=== PATIENT | female | born 1945 | race Caucasian/White ===

== ENCOUNTER 2017-10-27 19:09 | Inpatient (IN) | payer MEDICARE, MEDICAID ==
[~2017-10-27] VITALS: Ht 172.7 cm; Wt 132.6 kg
[~2017-10-27 19:09] MED LIST: CANA100T OR; CARV6.25 PO; CITA-77 PO; CYAN100L PO; DIG0125T PO; DOCU-94 PO; DON5T PO; ERGO1CAP6 PO; FAM20T PO; FOLI1TAB6 PO; FURO40TA PO; INSLANTI SC; LOSA25TA8 PO; MELA3TAB27 PO; OXYB15TA12 PO; SIMV10TA73 PO; TIOTCAP IN; WARF7.5T PO
[2017-10-27 20:18] LABS: Basophils # (auto) 0 uL; Basophils % (auto) 0.4 % (0.0-2.0); Eosinophils # (auto) 0.1 uL; Eosinophils % (auto) 0.9 % (0.0-7.0); Hemoglobin 13.2 g/dL (12.2-16.2); Platelet Count (auto) 162 10^3/uL (140-450); White Blood Cell 8.7 10^3/uL (4.4-10.8)
[2017-10-27 20:20] LABS: Hematocrit 43.1 % (36.0-46.0); Lymphocytes # (auto) 1.4 uL; Lymphocytes % (auto) 15.7 % (10.0-50.0); Mean Corpuscular Hgb Conc. 30.7 g/dL (32.0-36.0); Mean Corpuscular Volume 84.9 fL (80.0-100.0); Neutrophils # (auto) 6.3 uL; Nucleated Red Blood Cells % 0.1 %; Red Blood Cells 5.07 10^6/uL (4.0-5.20)
[2017-10-27 20:28] LABS: INR 2.72 (0.9-1.15); Partial Thromboplastin Time 36.2 sec (22.64-33.71); Prothrombin Time 29.9 sec (9.37-12.3)
[2017-10-27 20:29] LABS: Alanine Aminotransferase 30 U/L (13-56); Albumin 2.9 g/dL (3.4-5.0); Alkaline Phosphatase 149 U/L (45-117); Anion Gap 7 (5-15); Aspartate Aminotransferase 23 U/L (15-37); BUN/Creatinine Ratio 22.6; Bilirubin, Total 1.1 mg/dL (0.2-1.0); Blood Urea Nitrogen 12 mg/dL (7-18); Carbon Dioxide 40 mmol/L (21-32); Chloride 93 mmol/L (98-107); GFR African American 145 mL/min; GFR Non-African American 120 mL/min; Glucose 179 mg/dL (74-106); Magnesium 2.3 mg/dL (1.6-2.6); Potassium 4.1 mmol/L (3.5-5.1); Sodium 140 mmol/L (136-145); Total Protein 7.2 g/dL (6.4-8.2)
[2017-10-27] MEDS ORDERED: ALBUTEROL SULF 2.5 MG/0.5ML(0.5%) NEB SOLN NEB ONE (23:00)
[2017-10-27] MEDS ORDERED: methylPREDNISolone SOD SUCC 125 MG/2 ML VL IV ONE (23:00)
[2017-10-27] MEDS ORDERED: IPRATROPIUM BROM 0.5 MG/2.5ML INH SOL NEB ONE (23:00)
[2017-10-27 23:06] LABS: Urine Bacteria NONE SEEN /hpf (None Seen); Urine Blood TRACE /uL (Negative); Urine Mucus FEW (None Seen); Urine Specific Gravity 1.027 (1.001-1.035); Urine WBC 4 /hpf (0 - 5)
[2017-10-27] MEDS ORDERED: DIGOXIN (250MCG/ML) 2 ML AMPULE IV ONE ×2 (23:15→23:30)
[2017-10-27] MEDS ORDERED: PROMETHAZINE HCL 6.25 MG/5 ML ORAL SYRUP PO ONE (23:30)
[2017-10-27] MEDS ORDERED: LEVOFLOXACIN 500MG 100 ML IV ONE (23:30)
[2017-10-28] MEDS ORDERED: ONDANSETRON HCL 4 MG/2 ML VIAL IV ONE
[2017-10-28] MEDS ORDERED: MORPHINE SULFATE 4 MG/ML SYR/VIAL IV ONE
[2017-10-28] MEDS ORDERED: DILTIAZEM HCL 50 MG/10 ML VIAL IV ONE (06:35)
[2017-10-28] MEDS ORDERED: DILTIAZEM HCL 25 MG/5 ML VIAL IV ONE ×2 (06:44→06:45)
[2017-10-28] MEDS ORDERED: DEXTROSE (50%) 50ML SYRG IV PRN (07:00)
[2017-10-28] MEDS: ACCU-CHEK COMFORT CURVE STRIP VI SCH ×4 (08:04→21:37)
[2017-10-28] MEDS: InsuLIN REG 1unit/0.01ml Soln (100units/ml) SC SCH ×4 (08:09→21:37)
[2017-10-28 08:51] LABS: BUN/Creatinine Ratio 28.3; Calcium 9.5 mg/dL (8.5-10.1); Potassium 4.9 mmol/L (3.5-5.1)
[2017-10-28 09:55] LABS: Albumin 2.8 g/dL (3.4-5.0); Bilirubin, Direct 0.4 mg/dL (0-0.2); Bilirubin, Total 0.9 mg/dL (0.2-1.0); Total Protein 7.4 g/dL (6.4-8.2)
[2017-10-28 09:57] LABS: INR 2.81 (0.9-1.15); Partial Thromboplastin Time 38.5 sec (22.64-33.71); Prothrombin Time 30.9 sec (9.37-12.3)
[2017-10-28] MEDS ORDERED: FUROSEMIDE 20 MG TAB PO SCH (10:00)
[2017-10-28 10:22] VITALS: BP 100/66
[2017-10-28] MEDS: DOCUSATE SOD 100 MG CAP PO SCH ×2 (10:45→21:36)
[2017-10-28] MEDS: AZITHROMYCIN 500MG/ 250ML 250 ML IV SCH (10:45)
[2017-10-28] MEDS: CARVEDILOL 3.125 MG TAB PO SCH ×2 (10:45→21:35)
[2017-10-28] MEDS: DIGOXIN 0.125 MG TAB PO SCH (10:46)
[2017-10-28 11:30] VITALS: BP 140/69
[2017-10-28 17:40] VITALS: BP 110/64
[2017-10-28] MEDS: DONEPEZIL HYDROCHLORIDE 5 MG TAB PO SCH (21:36)
[2017-10-28 21:41] VITALS: BP 107/63
[2017-10-29 04:41] VITALS: BP 103/54
[2017-10-29 06:14] LABS: Basophils # (auto) 0 uL; Basophils % (auto) 0.1 % (0.0-2.0); Eosinophils # (auto) 0 uL; Lymphocytes # (auto) 0.9 uL; Lymphocytes % (auto) 12.2 % (10.0-50.0); Monocytes # (auto) 0.7 uL; Red Cell Distribution Width 15.7 % (11.8-14.3)
[2017-10-29 06:17] LABS: Eosinophils % (auto) 0.1 % (0.0-7.0); Hematocrit 42.7 % (36.0-46.0); Hemoglobin 13.2 g/dL (12.2-16.2); Mean Corpuscular Hemoglobin 26.4 pg (28.0-32.0); Mean Corpuscular Hgb Conc. 30.8 g/dL (32.0-36.0); Mean Corpuscular Volume 85.8 fL (80.0-100.0); Neutrophils % (auto) 78.6 % (37.0-80.0); Nucleated Red Blood Cells % 0.1 %; Platelet Count (auto) 183 10^3/uL (140-450); Red Blood Cells 4.98 10^6/uL (4.0-5.20); White Blood Cell 7.6 10^3/uL (4.4-10.8)
[2017-10-29 06:27] LABS: INR 3.98 (0.9-1.15); Partial Thromboplastin Time 38.6 sec (22.64-33.71)
[2017-10-29 06:36] LABS: Albumin 2.9 g/dL (3.4-5.0); Calcium 9.9 mg/dL (8.5-10.1); Magnesium 2.3 mg/dL (1.6-2.6); Potassium 4.2 mmol/L (3.5-5.1)
[2017-10-29 06:43] LABS: BUN/Creatinine Ratio 30.4; Bilirubin, Total 0.8 mg/dL (0.2-1.0)
[2017-10-29] MEDS: ACCU-CHEK COMFORT CURVE STRIP VI SCH ×4 (06:48→22:20)
[2017-10-29] MEDS: InsuLIN REG 1unit/0.01ml Soln (100units/ml) SC SCH ×4 (06:48→22:20)
[2017-10-29 08:44] VITALS: BP 124/52
[2017-10-29] MEDS: CARVEDILOL 3.125 MG TAB PO SCH ×2 (09:10→22:00)
[2017-10-29] MEDS: DIGOXIN 0.125 MG TAB PO SCH (09:11)
[2017-10-29] MEDS: DOCUSATE SOD 100 MG CAP PO SCH ×2 (09:11→22:17)
[2017-10-29] MEDS: FUROSEMIDE 20 MG TAB PO SCH (09:13)
[2017-10-29] MEDS: AZITHROMYCIN 500MG/ 250ML 250 ML IV SCH (09:20)
[2017-10-29] MEDS: ALBUTEROL SULF 2.5 MG/0.5ML(0.5%) NEB SOLN NEB PRN ×2 (11:45→22:50)
[2017-10-29 13:05] VITALS: BP 122/56
[2017-10-29 17:09] VITALS: BP 124/60
[2017-10-29] MEDS: DONEPEZIL HYDROCHLORIDE 5 MG TAB PO SCH (22:17)
[2017-10-29 22:30] VITALS: BP 131/59
[2017-10-30] MEDS: ACETAMINOPHEN 325 MG TAB PO PRN (02:20)
[2017-10-30 05:29] VITALS: BP 120/66
[2017-10-30] MEDS: ACCU-CHEK COMFORT CURVE STRIP VI SCH ×4 (06:32→22:08)
[2017-10-30] MEDS: InsuLIN REG 1unit/0.01ml Soln (100units/ml) SC SCH ×4 (06:32→22:18)
[2017-10-30 07:02] LABS: INR 2.4 (0.9-1.15); Partial Thromboplastin Time 35.2 sec (22.64-33.71); Prothrombin Time 26.4 sec (9.37-12.3)
[2017-10-30 07:12] LABS: Albumin 2.7 g/dL (3.4-5.0); BUN/Creatinine Ratio 45.2; Calcium 8.8 mg/dL (8.5-10.1); Magnesium 2.1 mg/dL (1.6-2.6)
[2017-10-30 07:15] LABS: Bilirubin, Total 0.7 mg/dL (0.2-1.0); Total Protein 6.3 g/dL (6.4-8.2)
[2017-10-30 07:21] LABS: Basophils # (auto) 0 uL; Basophils % (auto) 0.4 % (0.0-2.0); Hemoglobin 12.6 g/dL (12.2-16.2); Lymphocytes # (auto) 1.5 uL; Monocytes # (auto) 0.9 uL; Platelet Count (auto) 159 10^3/uL (140-450); White Blood Cell 6.7 10^3/uL (4.4-10.8)
[2017-10-30 07:25] LABS: Eosinophils # (auto) 0.1 uL; Eosinophils % (auto) 0.9 % (0.0-7.0); Hematocrit 40.9 % (36.0-46.0); Lymphocytes % (auto) 22.7 % (10.0-50.0); Mean Corpuscular Hemoglobin 26.3 pg (28.0-32.0); Mean Corpuscular Hgb Conc. 30.8 g/dL (32.0-36.0); Mean Corpuscular Volume 85.6 fL (80.0-100.0); Monocytes % (auto) 12.7 % (0.0-12.0); Neutrophils # (auto) 4.2 uL; Neutrophils % (auto) 63.3 % (37.0-80.0); Nucleated Red Blood Cells % 0.2 %; Red Blood Cells 4.78 10^6/uL (4.0-5.20); Red Cell Distribution Width 15.9 % (11.8-14.3)
[2017-10-30 09:00] VITALS: BP 160/62
[2017-10-30] MEDS: DOCUSATE SOD 100 MG CAP PO SCH ×2 (10:09→22:08)
[2017-10-30] MEDS: FUROSEMIDE 20 MG TAB PO SCH (10:10)
[2017-10-30] MEDS: CARVEDILOL 3.125 MG TAB PO SCH ×2 (10:10→22:09)
[2017-10-30] MEDS: DIGOXIN 0.125 MG TAB PO SCH (10:11)
[2017-10-30] MEDS: AZITHROMYCIN 500MG/ 250ML 250 ML IV SCH (10:11)
[2017-10-30 13:00] VITALS: BP 120/56
[2017-10-30 17:00] VITALS: BP 104/56
[2017-10-30] MEDS ORDERED: WARFARIN SODIUM 1 MG TAB PO ONE (17:00)
[2017-10-30 20:00] VITALS: BP 138/61
[2017-10-30] MEDS: DONEPEZIL HYDROCHLORIDE 5 MG TAB PO SCH (22:08)
[2017-10-30 22:35] VITALS: BP 138/61
[2017-10-31] VITALS (8 sets, daily range): BP systolic 105–149; BP diastolic 53–81
[2017-10-31] MEDS: ACCU-CHEK COMFORT CURVE STRIP VI SCH ×4 (06:40→21:58)
[2017-10-31] MEDS: InsuLIN REG 1unit/0.01ml Soln (100units/ml) SC SCH ×4 (06:47→22:44)
[2017-10-31 07:03] LABS: Basophils # (auto) 0 uL; Basophils % (auto) 0.5 % (0.0-2.0); Eosinophils # (auto) 0.1 uL; Hemoglobin 12.4 g/dL (12.2-16.2); Monocytes # (auto) 0.7 uL; Neutrophils # (auto) 3.4 uL; Nucleated Red Blood Cells % 0.1 %; White Blood Cell 5.9 10^3/uL (4.4-10.8)
[2017-10-31 07:06] LABS: Eosinophils % (auto) 1.4 % (0.0-7.0); Hematocrit 39.9 % (36.0-46.0); Lymphocytes # (auto) 1.6 uL; Mean Corpuscular Hemoglobin 26.3 pg (28.0-32.0); Mean Corpuscular Volume 84.6 fL (80.0-100.0); Monocytes % (auto) 12.7 % (0.0-12.0); Neutrophils % (auto) 57.4 % (37.0-80.0); Platelet Count (auto) 146 10^3/uL (140-450); Red Blood Cells 4.71 10^6/uL (4.0-5.20); Red Cell Distribution Width 16.1 % (11.8-14.3)
[2017-10-31 07:20] LABS: BUN/Creatinine Ratio 38.5; Calcium 8.5 mg/dL (8.5-10.1); Magnesium 1.9 mg/dL (1.6-2.6); Potassium 3.6 mmol/L (3.5-5.1)
[2017-10-31 07:26] LABS: INR 1.6 (0.9-1.15); Partial Thromboplastin Time 30.8 sec (22.64-33.71); Prothrombin Time 17.5 sec (9.37-12.3)
[2017-10-31] MEDS: DOCUSATE SOD 100 MG CAP PO SCH ×2 (09:13→22:00)
[2017-10-31] MEDS: DIGOXIN 0.125 MG TAB PO SCH (09:13)
[2017-10-31] MEDS: CARVEDILOL 3.125 MG TAB PO SCH ×2 (09:14→22:00)
[2017-10-31] MEDS: FUROSEMIDE 20 MG TAB PO SCH (09:14)
[2017-10-31] MEDS: AZITHROMYCIN 500MG/ 250ML 250 ML IV SCH (09:15)
[2017-10-31] MEDS: ARMODAFINIL 150 MG TAB PO SCH (09:21)
[2017-10-31] MEDS ORDERED: WARFARIN SODIUM 2.5 MG TAB PO ONE (17:00)
[2017-10-31] MEDS: DONEPEZIL HYDROCHLORIDE 5 MG TAB PO SCH (21:58)
[2017-11-01 04:34] VITALS: BP 134/83
[2017-11-01 06:16] LABS: Basophils # (auto) 0 uL; Eosinophils # (auto) 0.1 uL; Hematocrit 43.8 % (36.0-46.0); Hemoglobin 13.6 g/dL (12.2-16.2); Lymphocytes # (auto) 1.5 uL; Mean Corpuscular Hemoglobin 26.3 pg (28.0-32.0); Red Blood Cells 5.17 10^6/uL (4.0-5.20); White Blood Cell 6.2 10^3/uL (4.4-10.8)
[2017-11-01 06:19] LABS: Basophils % (auto) 0.3 % (0.0-2.0); Lymphocytes % (auto) 24.6 % (10.0-50.0); Mean Corpuscular Hgb Conc. 31.1 g/dL (32.0-36.0); Mean Corpuscular Volume 84.7 fL (80.0-100.0); Monocytes # (auto) 0.7 uL; Monocytes % (auto) 11.6 % (0.0-12.0); Neutrophils # (auto) 3.8 uL; Neutrophils % (auto) 61.5 % (37.0-80.0); Nucleated Red Blood Cells % 0.3 %; Platelet Count (auto) 157 10^3/uL (140-450); Red Cell Distribution Width 16.3 % (11.8-14.3)
[2017-11-01 06:25] LABS: INR 1.4 (0.9-1.15); Partial Thromboplastin Time 29.2 sec (22.64-33.71); Prothrombin Time 15.3 sec (9.37-12.3)
[2017-11-01 06:34] LABS: BUN/Creatinine Ratio 23.1; Calcium 8.8 mg/dL (8.5-10.1); Magnesium 2.1 mg/dL (1.6-2.6); Potassium 3.5 mmol/L (3.5-5.1)
[2017-11-01] MEDS: ACCU-CHEK COMFORT CURVE STRIP VI SCH ×4 (06:36→22:17)
[2017-11-01] MEDS: InsuLIN REG 1unit/0.01ml Soln (100units/ml) SC SCH ×4 (06:48→22:39)
[2017-11-01 07:30] VITALS: BP 168/107
[2017-11-01] MEDS: ARMODAFINIL 150 MG TAB PO SCH (08:37)
[2017-11-01] MEDS: AZITHROMYCIN 500MG/ 250ML 250 ML IV SCH (09:50)
[2017-11-01] MEDS: DOCUSATE SOD 100 MG CAP PO SCH ×2 (09:50→22:17)
[2017-11-01] MEDS: CARVEDILOL 3.125 MG TAB PO SCH ×2 (09:51→22:19)
[2017-11-01] MEDS: DIGOXIN 0.125 MG TAB PO SCH (09:52)
[2017-11-01] MEDS: FUROSEMIDE 20 MG TAB PO SCH (09:53)
[2017-11-01 11:49] VITALS: BP 114/52
[2017-11-01] MEDS: ACETYLCYSTEINE 20%(200MG/ML) SOL 4ML NEB SCH ×2 (14:23→22:59)
[2017-11-01] MEDS: ALBUTEROL SULF 2.5 MG/0.5ML(0.5%) NEB SOLN NEB PRN ×2 (14:23→22:59)
[2017-11-01 17:07] VITALS: BP 123/64
[2017-11-01] MEDS ORDERED: WARFARIN SODIUM 5 MG TAB PO ONE (17:30)
[2017-11-01 21:56] VITALS: BP 117/61
[2017-11-01] MEDS: DONEPEZIL HYDROCHLORIDE 5 MG TAB PO SCH (22:18)
[2017-11-02] VITALS (7 sets, daily range): BP systolic 120–139; BP diastolic 65–86
[2017-11-02 05:45] LABS: Eosinophils # (auto) 0.1 uL; Lymphocytes # (auto) 1.9 uL; Mean Corpuscular Hemoglobin 26.5 pg (28.0-32.0); Mean Corpuscular Hgb Conc. 31.7 g/dL (32.0-36.0); Monocytes # (auto) 0.8 uL
[2017-11-02 05:49] LABS: Basophils # (auto) 0.1 uL; Basophils % (auto) 0.8 % (0.0-2.0); Eosinophils % (auto) 1.7 % (0.0-7.0); Hemoglobin 13.7 g/dL (12.2-16.2); Lymphocytes % (auto) 26.1 % (10.0-50.0); Mean Corpuscular Volume 83.4 fL (80.0-100.0); Monocytes % (auto) 11.1 % (0.0-12.0); Neutrophils # (auto) 4.5 uL; Neutrophils % (auto) 60.3 % (37.0-80.0); Nucleated Red Blood Cells % 0.2 %; Platelet Count (auto) 157 10^3/uL (140-450); Red Blood Cells 5.16 10^6/uL (4.0-5.20); Red Cell Distribution Width 16.4 % (11.8-14.3); White Blood Cell 7.5 10^3/uL (4.4-10.8)
[2017-11-02 05:58] LABS: INR 1.31 (0.9-1.15); Partial Thromboplastin Time 26.8 sec (22.64-33.71); Prothrombin Time 14.3 sec (9.37-12.3)
[2017-11-02 06:04] LABS: BUN/Creatinine Ratio 28.6; Calcium 8.7 mg/dL (8.5-10.1); Potassium 3.4 mmol/L (3.5-5.1)
[2017-11-02] MEDS: ALBUTEROL SULF 2.5 MG/0.5ML(0.5%) NEB SOLN NEB PRN ×3 (06:18→22:38)
[2017-11-02] MEDS: ACETYLCYSTEINE 20%(200MG/ML) SOL 4ML NEB SCH ×3 (06:18→22:38)
[2017-11-02] MEDS: InsuLIN REG 1unit/0.01ml Soln (100units/ml) SC SCH ×4 (06:41→21:43)
[2017-11-02] MEDS: ACCU-CHEK COMFORT CURVE STRIP VI SCH ×4 (07:06→21:43)
[2017-11-02] MEDS: ARMODAFINIL 150 MG TAB PO SCH (08:09)
[2017-11-02] MEDS: DOCUSATE SOD 100 MG CAP PO SCH ×2 (09:41→21:42)
[2017-11-02] MEDS: AZITHROMYCIN 500MG/ 250ML 250 ML IV SCH (09:41)
[2017-11-02] MEDS: DIGOXIN 0.125 MG TAB PO SCH (09:42)
[2017-11-02] MEDS: FUROSEMIDE 20 MG TAB PO SCH (09:42)
[2017-11-02] MEDS: CARVEDILOL 3.125 MG TAB PO SCH ×2 (09:43→21:42)
[2017-11-02] MEDS ORDERED: POTASSIUM CHL 20 Meq TABLET PO ONE (10:30)
[2017-11-02] MEDS: ENOXAPARIN SOD 40 MG/0.4 ML SYRINGE SC SCH (10:50)
[2017-11-02] MEDS ORDERED: WARFARIN SODIUM 10 MG TAB PO ONE (17:00)
[2017-11-02] MEDS: DONEPEZIL HYDROCHLORIDE 5 MG TAB PO SCH (21:42)
[2017-11-03 04:49] VITALS: BP 128/76
[2017-11-03] MEDS: InsuLIN REG 1unit/0.01ml Soln (100units/ml) SC SCH ×4 (05:59→23:05)
[2017-11-03] MEDS: ACCU-CHEK COMFORT CURVE STRIP VI SCH ×4 (05:59→22:55)
[2017-11-03] MEDS: ALBUTEROL SULF 2.5 MG/0.5ML(0.5%) NEB SOLN NEB PRN ×2 (06:15→23:00)
[2017-11-03] MEDS: ACETYLCYSTEINE 20%(200MG/ML) SOL 4ML NEB SCH ×3 (06:15→22:58)
[2017-11-03 06:27] LABS: Basophils # (auto) 0.1 uL; Eosinophils # (auto) 0.1 uL; Hemoglobin 14.5 g/dL (12.2-16.2); Monocytes # (auto) 0.9 uL; Nucleated Red Blood Cells % 0.4 %
[2017-11-03 06:29] LABS: Basophils % (auto) 0.9 % (0.0-2.0); Eosinophils % (auto) 1.8 % (0.0-7.0); Hematocrit 46.1 % (36.0-46.0); Mean Corpuscular Hemoglobin 26.4 pg (28.0-32.0); Mean Corpuscular Hgb Conc. 31.6 g/dL (32.0-36.0); Mean Corpuscular Volume 83.8 fL (80.0-100.0); Monocytes % (auto) 12.6 % (0.0-12.0); Neutrophils % (auto) 56.7 % (37.0-80.0); Platelet Count (auto) 173 10^3/uL (140-450); Red Cell Distribution Width 16.3 % (11.8-14.3); White Blood Cell 7.1 10^3/uL (4.4-10.8)
[2017-11-03 06:36] LABS: INR 1.53 (0.9-1.15); Partial Thromboplastin Time 24.8 sec (22.64-33.71); Prothrombin Time 16.7 sec (9.37-12.3)
[2017-11-03 06:42] LABS: Calcium 8.9 mg/dL (8.5-10.1); Potassium 3.8 mmol/L (3.5-5.1)
[2017-11-03] MEDS: ARMODAFINIL 150 MG TAB PO SCH (08:00)
[2017-11-03 08:25] VITALS: BP 124/59
[2017-11-03] MEDS: DOCUSATE SOD 100 MG CAP PO SCH ×2 (09:48→22:54)
[2017-11-03] MEDS: AZITHROMYCIN 250 MG TAB PO SCH (09:49)
[2017-11-03] MEDS: FUROSEMIDE 20 MG TAB PO SCH (09:49)
[2017-11-03] MEDS: DIGOXIN 0.125 MG TAB PO SCH (09:49)
[2017-11-03] MEDS: ENOXAPARIN SOD 40 MG/0.4 ML SYRINGE SC SCH (09:50)
[2017-11-03] MEDS: CARVEDILOL 3.125 MG TAB PO SCH ×2 (09:50→22:55)
[2017-11-03] MEDS: ACETAMINOPHEN 325 MG TAB PO PRN ×2 (09:53→14:46)
[2017-11-03] MEDS ORDERED: ENOXAPARIN SOD 40 MG/0.4 ML SYRINGE SC SCH (10:00)
[2017-11-03 11:26] VITALS: BP 124/59
[2017-11-03 12:21] VITALS: BP 130/80
[2017-11-03 16:56] VITALS: BP 151/57
[2017-11-03] MEDS ORDERED: WARFARIN SODIUM 5 MG TAB PO ONE (17:00)
[2017-11-03] MEDS ORDERED: Boost Glucose Control 8 Ounces PO SCH (18:00)
[2017-11-03 22:00] VITALS: BP 133/71
[2017-11-03] MEDS: DONEPEZIL HYDROCHLORIDE 5 MG TAB PO SCH (22:54)
[2017-11-04 05:31] VITALS: BP 100/50
[2017-11-04 06:25] LABS: Basophils # (auto) 0 uL; Eosinophils # (auto) 0.1 uL; Monocytes # (auto) 0.9 uL
[2017-11-04 06:28] LABS: Basophils % (auto) 0.7 % (0.0-2.0); Eosinophils % (auto) 1.4 % (0.0-7.0); Hematocrit 45.6 % (36.0-46.0); Hemoglobin 14.3 g/dL (12.2-16.2); Lymphocytes # (auto) 1.8 uL; Mean Corpuscular Hemoglobin 26.3 pg (28.0-32.0); Mean Corpuscular Hgb Conc. 31.4 g/dL (32.0-36.0); Mean Corpuscular Volume 83.7 fL (80.0-100.0); Monocytes % (auto) 14.7 % (0.0-12.0); Neutrophils # (auto) 3.4 uL; Neutrophils % (auto) 54.2 % (37.0-80.0); Nucleated Red Blood Cells % 1.2 %; Platelet Count (auto) 162 10^3/uL (140-450); Red Blood Cells 5.44 10^6/uL (4.0-5.20); Red Cell Distribution Width 16.8 % (11.8-14.3); White Blood Cell 6.3 10^3/uL (4.4-10.8)
[2017-11-04 06:34] LABS: INR 2.01 (0.9-1.15); Partial Thromboplastin Time 29.9 sec (22.64-33.71); Prothrombin Time 22.1 sec (9.37-12.3)
[2017-11-04] MEDS: InsuLIN REG 1unit/0.01ml Soln (100units/ml) SC SCH (06:35)
[2017-11-04 06:42] LABS: Calcium 8.9 mg/dL (8.5-10.1); Potassium 3.2 mmol/L (3.5-5.1)
[2017-11-04] MEDS: ALBUTEROL SULF 2.5 MG/0.5ML(0.5%) NEB SOLN NEB PRN (06:47)
[2017-11-04] MEDS: ACETYLCYSTEINE 20%(200MG/ML) SOL 4ML NEB SCH (06:47)
[2017-11-04 06:48] LABS: BUN/Creatinine Ratio 29.6
[2017-11-04] MEDS: ACCU-CHEK COMFORT CURVE STRIP VI SCH (06:50)
[2017-11-04] MEDS ORDERED: POTASSIUM CHL 20 Meq TABLET PO ONE (07:30)
[2017-11-04 09:00] VITALS: BP 137/67
[2017-11-04] MEDS: AZITHROMYCIN 250 MG TAB PO SCH (09:01)
[2017-11-04] MEDS: CARVEDILOL 3.125 MG TAB PO SCH (09:02)
[2017-11-04] MEDS: ARMODAFINIL 150 MG TAB PO SCH (09:03)
[2017-11-04] MEDS: DOCUSATE SOD 100 MG CAP PO SCH (09:04)
[2017-11-04] MEDS: FUROSEMIDE 20 MG TAB PO SCH (09:04)
[2017-11-04] MEDS: DIGOXIN 0.125 MG TAB PO SCH (09:05)
[2017-11-04] MEDS: ENOXAPARIN SOD 40 MG/0.4 ML SYRINGE SC SCH (09:06)
== END 2017-11-04 10:54 | disposition home or self-care (01) | DRG 291 ==
LOC: EDBD 19:09 → ER 19:09 → TELE 19:10 → TELE-EAST 10-28 15:36
PROVIDERS: ADMIT Nurse Practitioner Family; ATTEND Internal Medicine
PROC: 5A09357 Assistance with Respiratory Ventilation, Less than 24 Consecutive Hours, Continuous Positive Airway Pressure (ICD-10-PCS; principal; 2017-11-01)
PROC: 5A09357 Assistance with Respiratory Ventilation, Less than 24 Consecutive Hours, Continuous Positive Airway Pressure (ICD-10-PCS; 2017-11-02)
PROC: 5A09357 Assistance with Respiratory Ventilation, Less than 24 Consecutive Hours, Continuous Positive Airway Pressure (ICD-10-PCS; 2017-11-03)
DX: I13.0 Hypertensive heart and chronic kidney disease with heart failure and stage 1 through stage 4 chronic kidney disease, or unspecified chronic kidney disease (principal); I50.21 Acute systolic (congestive) heart failure; J96.22 Acute and chronic respiratory failure with hypercapnia; J18.9 Pneumonia, unspecified organism; E44.0 Moderate protein-calorie malnutrition; E87.3 Alkalosis; D68.59 Other primary thrombophilia; D68.9 Coagulation defect, unspecified; E11.22 Type 2 diabetes mellitus with diabetic chronic kidney disease; E46 Unspecified protein-calorie malnutrition; E66.2 Morbid (severe) obesity with alveolar hypoventilation; J44.0 Chronic obstructive pulmonary disease with (acute) lower respiratory infection; J44.1 Chronic obstructive pulmonary disease with (acute) exacerbation; Z68.41 Body mass index [BMI] 40.0-44.9, adult; E11.65 Type 2 diabetes mellitus with hyperglycemia; N18.9 Chronic kidney disease, unspecified; D64.9 Anemia, unspecified; E78.5 Hyperlipidemia, unspecified; F03.90 Unspecified dementia, unspecified severity, without behavioral disturbance, psychotic disturbance, mood disturbance, and anxiety; F41.9 Anxiety disorder, unspecified; E78.00 Pure hypercholesterolemia, unspecified; I48.91 Unspecified atrial fibrillation; I50.9 Heart failure, unspecified; M10.9 Gout, unspecified; Z79.01 Long term (current) use of anticoagulants; Z79.4 Long term (current) use of insulin; Z82.49 Family history of ischemic heart disease and other diseases of the circulatory system; Z83.3 Family history of diabetes mellitus; Z86.73 Personal history of transient ischemic attack (TIA), and cerebral infarction without residual deficits; Z90.710 Acquired absence of both cervix and uterus; Z79.899 Other long term (current) drug therapy; Z88.0 Allergy status to penicillin
CPT/HCPCS: 36415; 36600; 51702; 71045; 80048; 80053; 80076; 80162; 81001; 82805; 82962; 83036; 83735; 83880; 84484; 85025; 85379; 85610; 85730; 87081; 93005; 93306; 94640; 94660; 96365; 96375; 97163; J1815; J1956; J2405

== ENCOUNTER 2018-07-14 12:31 | Inpatient (IN) | payer MEDICARE, MEDICAID ==
[~2018-07-14] VITALS: Ht 170.2 cm; Wt 121.9 kg
[2018-07-14] MEDS ORDERED: SODIUM CHLORIDE 0.9% 1,000 ML IV ONE (15:32)
[2018-07-14 17:13] LABS: Basophils # (auto) 0 uL; Basophils % (auto) 0.5 % (0.0-2.0); Eosinophils # (auto) 0 uL; Eosinophils % (auto) 0.5 % (0.0-7.0); Hematocrit 43.2 % (36.0-46.0); Hemoglobin 13.9 g/dL (12.2-16.2); Lymphocytes # (auto) 1.7 uL; Lymphocytes % (auto) 42.9 % (10.0-50.0); Mean Corpuscular Hemoglobin 28.2 pg (28.0-32.0); Mean Corpuscular Hgb Conc. 32.1 g/dL (32.0-36.0); Mean Corpuscular Volume 87.9 fL (80.0-100.0); Monocytes # (auto) 0.3 uL; Monocytes % (auto) 8.3 % (0.0-12.0); Neutrophils # (auto) 1.9 uL; Neutrophils % (auto) 47.8 % (37.0-80.0); Nucleated Red Blood Cells % 0.3 %; Platelet Count (auto) 103 10^3/uL (140-450); Red Blood Cells 4.92 10^6/uL (4.0-5.20); Red Cell Distribution Width 13.8 % (11.8-14.3)
[2018-07-14] MEDS ORDERED: FUROSEMIDE 40 MG/4 ML VIAL IV ONE (17:15)
[2018-07-14] MEDS ORDERED: cefTRIAXone 1GM/50ML D5W 50 ML IV ONE (17:15)
[2018-07-14 17:24] LABS: INR 1.24 (0.9-1.15); Partial Thromboplastin Time 32.4 sec (23.78-33.04); Prothrombin Time 13.1 sec (9.27-12.13)
[2018-07-14 17:25] LABS: Albumin 2.7 g/dL (3.4-5.0); BUN/Creatinine Ratio 26.2; Calcium 8.3 mg/dL (8.5-10.1); Magnesium 2.3 mg/dL (1.6-2.6); Potassium 3.8 mmol/L (3.5-5.1)
[2018-07-14 17:30] LABS: Bilirubin, Total 0.4 mg/dL (0.2-1.0); Total Protein 7.1 g/dL (6.4-8.2)
[2018-07-14 18:28] LABS: Urine Bacteria NONE SEEN /hpf (None Seen); Urine Blood Negative /uL (Negative); Urine Hyaline Cast FEW /lpf (0 - 2); Urine Specific Gravity 1.019 (1.001-1.035); Urine WBC 1 /hpf (0 - 5)
[2018-07-14 18:45] LABS: Amphetamine Screen, Urine NEGATIVE (NEGATIVE); Barbiturate Scree,Urine NEGATIVE (NEGATIVE); Benzodiazephine Screen, Urine NEGATIVE (NEGATIVE); Cannabinoid Screen, Urine NEGATIVE (NEGATIVE); Cocaine Screen, Urine NEGATIVE (NEGATIVE); Opiate Scree,Urine NEGATIVE (NEGATIVE); Phencyclidine Screen, Urine NEGATIVE (NEGATIVE)
[2018-07-14] MEDS ORDERED: FAMOTIDINE (10MG/ML) 2ML VL IV ONE (19:00)
[2018-07-14 22:00] VITALS: BP 101/49
[2018-07-14] MEDS: ACCU-CHEK COMFORT CURVE STRIP VI SCH (23:05)
[2018-07-14] MEDS: InsuLIN REG 1unit/0.01ml Soln (100units/ml) SC SCH (23:06)
[2018-07-15 05:00] VITALS: BP 133/65
[2018-07-15] MEDS ORDERED: PANT1INJ3 PO (05:47)
[2018-07-15] MEDS ORDERED: FLUO-125 PO (05:47)
[2018-07-15] MEDS ORDERED: WARF4TAB31 PO (05:47)
[2018-07-15] MEDS ORDERED: PROBTAB12 PO (05:47)
[2018-07-15] MEDS: ACCU-CHEK COMFORT CURVE STRIP VI SCH ×4 (06:12→21:48)
[2018-07-15] MEDS: InsuLIN REG 1unit/0.01ml Soln (100units/ml) SC SCH ×4 (06:12→21:48)
[2018-07-15 07:28] VITALS: BP 127/60
[2018-07-15] MEDS: FAMOTIDINE (10MG/ML) 2ML VL IV SCH ×2 (10:48→21:47)
[2018-07-15 11:27] VITALS: BP 123/61
[2018-07-15 16:43] VITALS: BP 163/84
[2018-07-15 22:00] VITALS: BP 130/92
[2018-07-16 04:56] VITALS: BP 148/64
[2018-07-16] MEDS: InsuLIN REG 1unit/0.01ml Soln (100units/ml) SC SCH ×4 (06:03→21:21)
[2018-07-16] MEDS: ACCU-CHEK COMFORT CURVE STRIP VI SCH ×4 (06:03→21:21)
[2018-07-16 07:27] VITALS: BP 153/71
[2018-07-16] MEDS ORDERED: IPRATROPIUM BROM 0.5 MG/2.5ML INH SOL NEB PRN (09:45)
[2018-07-16] MEDS ORDERED: VANCOMYCIN PER PHARMACY 0 MG IV SCH (09:45)
[2018-07-16] MEDS ORDERED: ALBUTEROL SULF 2.5 MG/0.5ML(0.5%) NEB SOLN NEB PRN (09:45)
[2018-07-16] MEDS ORDERED: ONDANSETRON HCL 4 MG/2 ML VIAL IV PRN (09:45)
[2018-07-16] MEDS: FAMOTIDINE 20 MG TAB PO SCH ×2 (10:23→21:21)
[2018-07-16] MEDS: LEVOFLOXACIN 500MG 100 ML IV SCH (10:23)
[2018-07-16] MEDS: ENOXAPARIN SOD 120 MG/0.8 ML SYRINGE SC SCH (10:24)
[2018-07-16] MEDS ORDERED: IOHEXOL 350 MG/ML 100ML IJ ONE (10:53)
[2018-07-16] MEDS ORDERED: VANCOMYCIN 1GM/250ML 250 ML IV ONE (11:00)
[2018-07-16 11:40] VITALS: BP 142/77
[2018-07-16 16:45] VITALS: BP 155/62
[2018-07-16 22:00] VITALS: BP 136/86
[2018-07-16] MEDS: VANCOMYCIN 1,250 MG in D5W 5% 250 ML IV SCH (22:51)
[2018-07-17 01:58] VITALS: BP 136/86
[2018-07-17 04:59] VITALS: BP 152/72
[2018-07-17] MEDS: ACCU-CHEK COMFORT CURVE STRIP VI SCH ×4 (06:04→21:19)
[2018-07-17] MEDS: InsuLIN REG 1unit/0.01ml Soln (100units/ml) SC SCH ×4 (06:04→21:18)
[2018-07-17 06:29] LABS: BUN/Creatinine Ratio 28.6; Calcium 8.6 mg/dL (8.5-10.1); Potassium 3.7 mmol/L (3.5-5.1)
[2018-07-17 09:00] VITALS: BP 148/74
[2018-07-17] MEDS: LEVOFLOXACIN 500MG 100 ML IV SCH (10:44)
[2018-07-17] MEDS: FAMOTIDINE 20 MG TAB PO SCH ×2 (10:45→21:18)
[2018-07-17] MEDS: ENOXAPARIN SOD 120 MG/0.8 ML SYRINGE SC SCH (10:45)
[2018-07-17] MEDS: VANCOMYCIN 1,250 MG in D5W 5% 250 ML IV SCH ×2 (12:30→23:04)
[2018-07-17 13:00] VITALS: BP 149/73
[2018-07-17 17:00] VITALS: BP 148/77
[2018-07-17 22:00] VITALS: BP 148/75
[2018-07-18 05:36] VITALS: BP 157/78
[2018-07-18] MEDS: ACCU-CHEK COMFORT CURVE STRIP VI SCH ×4 (06:05→21:33)
[2018-07-18] MEDS: InsuLIN REG 1unit/0.01ml Soln (100units/ml) SC SCH ×4 (06:05→21:33)
[2018-07-18 09:00] VITALS: BP 149/73
[2018-07-18] MEDS: ENOXAPARIN SOD 120 MG/0.8 ML SYRINGE SC SCH (09:55)
[2018-07-18] MEDS: FAMOTIDINE 20 MG TAB PO SCH ×2 (09:55→21:32)
[2018-07-18] MEDS: LEVOFLOXACIN 500MG 100 ML IV SCH (09:55)
[2018-07-18] MEDS: VANCOMYCIN 1,250 MG in D5W 5% 250 ML IV SCH ×2 (11:44→23:10)
[2018-07-18 13:00] VITALS: BP 150/74
[2018-07-18 17:00] VITALS: BP 114/64
[2018-07-18] MEDS: MEROPENEM 1GM IVPB 100 ML IV SCH ×2 (17:36→21:32)
[2018-07-18] MEDS: METOPROLOL TARTRATE 25 MG TAB PO SCH (21:33)
[2018-07-18 22:00] VITALS: BP 155/86
[2018-07-19 05:15] VITALS: BP 144/73
[2018-07-19] MEDS: MEROPENEM 1GM IVPB 100 ML IV SCH ×3 (05:31→21:50)
[2018-07-19] MEDS: InsuLIN REG 1unit/0.01ml Soln (100units/ml) SC SCH ×4 (06:06→21:52)
[2018-07-19] MEDS: ACCU-CHEK COMFORT CURVE STRIP VI SCH ×4 (06:06→21:52)
[2018-07-19 06:20] LABS: Basophils # (auto) 0 uL; Basophils % (auto) 0.6 % (0.0-2.0); Eosinophils # (auto) 0.1 uL; Eosinophils % (auto) 2.1 % (0.0-7.0); Hematocrit 42.3 % (36.0-46.0); Hemoglobin 13.8 g/dL (12.2-16.2); Lymphocytes # (auto) 1.7 uL; Lymphocytes % (auto) 32.4 % (10.0-50.0); Mean Corpuscular Hemoglobin 28.4 pg (28.0-32.0); Mean Corpuscular Hgb Conc. 32.6 g/dL (32.0-36.0); Mean Corpuscular Volume 87.1 fL (80.0-100.0); Monocytes # (auto) 0.5 uL; Monocytes % (auto) 10.3 % (0.0-12.0); Neutrophils # (auto) 2.9 uL; Neutrophils % (auto) 54.6 % (37.0-80.0); Nucleated Red Blood Cells % 0.1 %; Platelet Count (auto) 149 10^3/uL (140-450); Red Blood Cells 4.85 10^6/uL (4.0-5.20); Red Cell Distribution Width 13.9 % (11.8-14.3); White Blood Cell 5.3 10^3/uL (4.4-10.8)
[2018-07-19] MEDS ORDERED: VANCOMYCIN PER PHARMACY 0 MG IV SCH (08:30)
[2018-07-19 09:00] VITALS: BP 171/76
[2018-07-19] MEDS: METOPROLOL TARTRATE 25 MG TAB PO SCH ×2 (10:21→21:51)
[2018-07-19] MEDS: FAMOTIDINE 20 MG TAB PO SCH ×2 (10:22→21:51)
[2018-07-19] MEDS: ENOXAPARIN SOD 120 MG/0.8 ML SYRINGE SC SCH (10:23)
[2018-07-19] MEDS: VANCOMYCIN 1,250 MG in D5W 5% 250 ML IV SCH ×2 (10:41→11:00)
[2018-07-19 12:50] VITALS: BP 135/62
[2018-07-19] MEDS ORDERED: DOCUSATE SOD 100 MG CAP PO ONE (16:30)
[2018-07-19 17:00] VITALS: BP 148/69
[2018-07-19] MEDS ORDERED: VANCOMYCIN 1,250 MG in D5W 5% 250 ML IV SCH (17:00)
[2018-07-19] MEDS: VANCOMYCIN 1GM/250ML 250 ML IV SCH (17:00)
[2018-07-19] MEDS: HYDROcodone-ACET 5/325MG TAB PO PRN (17:10)
[2018-07-19 21:12] VITALS: BP 148/69
[2018-07-19] MEDS: DOCUSATE SOD 100 MG CAP PO SCH (21:50)
[2018-07-19] MEDS: MILK OF MAGNESIA 30ML SUSP PO SCH (21:51)
[2018-07-19 22:00] VITALS: BP 141/67
[2018-07-20] VITALS (7 sets, daily range): BP systolic 115–154; BP diastolic 54–75
[2018-07-20] MEDS: VANCOMYCIN 1GM/250ML 250 ML IV SCH (05:41)
[2018-07-20] MEDS: MEROPENEM 1GM IVPB 100 ML IV SCH ×2 (06:23→15:25)
[2018-07-20] MEDS: InsuLIN REG 1unit/0.01ml Soln (100units/ml) SC SCH ×2 (06:24→11:30)
[2018-07-20] MEDS: MILK OF MAGNESIA 30ML SUSP PO SCH ×2 (06:24→15:25)
[2018-07-20] MEDS: ACCU-CHEK COMFORT CURVE STRIP VI SCH ×2 (06:24→11:30)
[2018-07-20] MEDS: FAMOTIDINE 20 MG TAB PO SCH (09:46)
[2018-07-20] MEDS: DOCUSATE SOD 100 MG CAP PO SCH (09:46)
[2018-07-20] MEDS: METOPROLOL TARTRATE 25 MG TAB PO SCH (09:46)
[2018-07-20] MEDS: ENOXAPARIN SOD 120 MG/0.8 ML SYRINGE SC SCH (09:47)
[2018-07-20] MEDS: HYDROcodone-ACET 5/325MG TAB PO PRN (10:59)
== END 2018-07-20 16:35 | DRG 291 ==
LOC: EDBD 12:31 → ER 12:31 → WEST WING 21:55 → TELE-WESTW 07-15 00:40
PROVIDERS: ADMIT Specialist; ATTEND Specialist
DX: I13.0 Hypertensive heart and chronic kidney disease with heart failure and stage 1 through stage 4 chronic kidney disease, or unspecified chronic kidney disease (principal); I50.33 Acute on chronic diastolic (congestive) heart failure; J18.1 Lobar pneumonia, unspecified organism; N39.0 Urinary tract infection, site not specified; Z68.41 Body mass index [BMI] 40.0-44.9, adult; B96.4 Proteus (mirabilis) (morganii) as the cause of diseases classified elsewhere; E11.22 Type 2 diabetes mellitus with diabetic chronic kidney disease; E66.01 Morbid (severe) obesity due to excess calories; E78.5 Hyperlipidemia, unspecified; G40.909 Epilepsy, unspecified, not intractable, without status epilepticus; I48.91 Unspecified atrial fibrillation; I69.30 Unspecified sequelae of cerebral infarction; J45.909 Unspecified asthma, uncomplicated; N18.9 Chronic kidney disease, unspecified; Z16.23 Resistance to quinolones and fluoroquinolones; Z93.1 Gastrostomy status; M10.9 Gout, unspecified; Z74.01 Bed confinement status; Z82.49 Family history of ischemic heart disease and other diseases of the circulatory system; Z83.3 Family history of diabetes mellitus; Z90.710 Acquired absence of both cervix and uterus; Z88.0 Allergy status to penicillin; Z79.01 Long term (current) use of anticoagulants; Z79.4 Long term (current) use of insulin; Z79.899 Other long term (current) drug therapy; F41.9 Anxiety disorder, unspecified
CPT/HCPCS: 36415; 70450; 71045; 71275; 80048; 80053; 80162; 80202; 80307; 81001; 82565; 82962; 83735; 84443; 84484; 85025; 85610; 85730; 87040; 87070; 87081; 87086; 87088; 87186; 87205; 93005; 94640; 94761; 96361; 96365; 96375; G0378; J0696; J1815; J1956; J2185; J3490; J7060

== ENCOUNTER 2020-06-24 00:36 | Inpatient (IN) | payer MEDICARE, MEDICAID ==
[~2020-06-24] VITALS: Ht 152.4 cm; Wt 120.6 kg
--- NOTE | 2020-06-24 00:15 | NUR ---
PATIENT IS SPONTANEOUSLY OPENING HER EYES AND RESPONDING TO TOUCH. WILL CONTINUE TO MONITOR THE PATIENT'S STATUS.
[~2020-06-24 00:36] MED LIST changes: -CANA100T OR; -CITA-77 PO; -CYAN100L PO; -ERGO1CAP6 PO; -FAM20T PO; +FLUO-125 PO; +FURO1TAB31 PO; -FURO40TA PO; -OXYB15TA12 PO; +PANT1INJ3 PO; +PROBTAB12 PO; +WARF4TAB2 PO; -WARF7.5T PO
[2020-06-24 02:00] LABS: Eosinophils # (auto) 0 10 ^3/uL (0-0.8); Hemoglobin 12.5 g/dL (12.2-16.2); Lymphocytes # (auto) 1.1 10 ^3/uL (0.4-5.4); Nucleated Red Blood Cells % 0.1 %
[2020-06-24 02:02] LABS: Basophils # (auto) 0.1 10 ^3/uL (0-0.2); Basophils % (auto) 0.4 % (0.0-2.0); Hematocrit 39.8 % (36.0-46.0); Lymphocytes % (auto) 5.9 % (10.0-50.0); Mean Corpuscular Hemoglobin 28.8 pg (28.0-32.0); Mean Corpuscular Hgb Conc. 31.5 g/dL (32.0-36.0); Mean Corpuscular Volume 91.5 fL (80.0-100.0); Monocytes # (auto) 1.2 10 ^3/uL (0-1.3); Monocytes % (auto) 6.4 % (0.0-12.0); Neutrophils # (auto) 16.1 10 ^3/uL (1.6-8.6); Neutrophils % (auto) 87.3 % (37.0-80.0); Platelet Count (auto) 185 10^3/uL (140-450); Red Blood Cells 4.36 10^6/uL (4.0-5.20); Red Cell Distribution Width 15.1 % (11.8-14.3); White Blood Cell 18.4 10^3/uL (4.4-10.8)
[2020-06-24 02:16] LABS: Alanine Aminotransferase 22 U/L (13-56); Albumin 2.6 g/dL (3.4-5.0); Aspartate Aminotransferase 31 U/L (15-37); BUN/Creatinine Ratio 33.8; Blood Urea Nitrogen 22 mg/dL (7-18); Calcium 9.4 mg/dL (8.5-10.1); Chloride 95 mmol/L (98-107); GFR African American 114 mL/min; GFR Non-African American 94 mL/min; Glucose 188 mg/dL (74-106); Potassium 4.2 mmol/L (3.5-5.1); Sodium 143 mmol/L (136-145)
[2020-06-24 02:21] LABS: Partial Thromboplastin Time 42.8 sec (23.0-31.2)
[2020-06-24 02:24] LABS: Alkaline Phosphatase 136 U/L (45-117); Bilirubin, Total 0.6 mg/dL (0.2-1.0); Total Protein 7.4 g/dL (6.4-8.2)
[2020-06-24 02:25] LABS: Anion Gap 2.99999 (5-15)
[2020-06-24 02:28] LABS: Carbon Dioxide > 45 mmol/L (21-32)
[2020-06-24 02:30] LABS: INR 4.74 (0.9-1.15)
[2020-06-24 02:51] LABS: Urine Bacteria FEW /hpf (None Seen); Urine Blood Negative /uL (Negative); Urine Mucus FEW (None Seen); Urine Specific Gravity 1.029 (1.001-1.035); Urine WBC 2 /hpf (0 - 5)
[2020-06-24] MEDS ORDERED: VANCOMYCIN 1GM/250ML 250 ML IV ONE (03:00)
[2020-06-24] MEDS ORDERED: SODIUM CHLORIDE 0.9% 500 ML IV ONE (03:00)
[2020-06-24] MEDS ORDERED: levoFLOXacin 500MG 100 ML IV ONE (03:00)
[2020-06-24] MEDS ORDERED: SODIUM CHLORIDE 0.9% 1,000 ML IV ONE (03:00)
[2020-06-24 05:26] LABS: Lactic Acid w/Reflex 2.2 mmol/L (0.4-2.0)
[2020-06-24] MEDS ORDERED: LORazepam 2MG/ML-1ML VIAL IV ONE (05:30)
[2020-06-24] MEDS ORDERED: ACETAMINOPHEN 325 MG TAB PO PRN (07:15)
[2020-06-24] MEDS ORDERED: MORPHINE SULFATE 4 MG/ML SYR/VIAL IV PRN (07:15)
[2020-06-24] MEDS ORDERED: DOCUSATE SOD 100 MG CAP PO PRN (07:15)
[2020-06-24] MEDS ORDERED: NITROGLYCERIN 0.4 MG SL TAB SL PRN (07:15)
[2020-06-24] MEDS ORDERED: ONDANSETRON HCL 4 MG/2 ML VIAL IV PRN (07:15)
[2020-06-24] MEDS ORDERED: VANCOMYCIN PER PHARMACY 0 MG IV SCH (07:15)
[2020-06-24] MEDS ORDERED: MORPHINE SULF INJ 2 MG/ML SYRINGE 1ML IV PRN (07:15)
--- NOTE | 2020-06-24 07:15 | NUR ---
Respiratory note: PATIENT IS OFF BIPAP AT THIS TIME, ON ROOM AIR HR 96%, RR 28, SPO2 78% ON ROOM AIR. PATIENT IS NON COMPLIANT, NOT TOLERATING BIPAP OR SIMPLE MASK. RN AT BEDSIDE, RN PLACED PATIENT BACK ON 10L SIMPLE MASK.
[2020-06-24] MEDS ORDERED: DEXTROSE (50%) 50ML SYRG IV PRN (07:45)
[2020-06-24 08:57] LABS: Albumin 2.5 g/dL (3.4-5.0); Calcium 9.2 mg/dL (8.5-10.1)
[2020-06-24 09:01] LABS: BUN/Creatinine Ratio 41.5; Bilirubin, Total 0.7 mg/dL (0.2-1.0); Total Protein 7.3 g/dL (6.4-8.2)
[2020-06-24] MEDS: FUROSEMIDE 40 MG/4 ML VIAL IV SCH (09:32)
[2020-06-24] MEDS: VANCOMYCIN 1GM/250ML 250 ML IV SCH (09:33)
[2020-06-24] MEDS: FAMOTIDINE 20 MG TAB PO SCH ×2 (09:35→22:00)
[2020-06-24] MEDS: DIGOXIN 0.125 MG TAB PO SCH (09:37)
[2020-06-24] MEDS: CARVEDILOL 12.5 MG TAB PO SCH ×2 (09:37→22:00)
[2020-06-24] MEDS: ASCORBIC ACID 500 MG TAB PO SCH ×2 (09:37→22:00)
[2020-06-24] MEDS: MULTIPLE VITAMIN TAB PO SCH (09:37)
[2020-06-24] MEDS: INSULIN LANTUS (GLARGINE) 1 /0.01ml (100units/ml) SC SCH (09:44)
[2020-06-24] MEDS ORDERED: ZINC SULFATE 220mg CAP or TAB PO SCH (10:00)
[2020-06-24] MEDS ORDERED: ENOXAPARIN SOD 40 MG/0.4 ML SYRINGE SC SCH (10:00)
[2020-06-24] MEDS ORDERED: DIGOXIN 0.125 MG TAB PO SCH (10:00)
[2020-06-24] MEDS ORDERED: LOSARTAN POTASSIUM 25 MG TAB PO SCH (10:00)
[2020-06-24 11:47] VITALS: BP 146/66
[2020-06-24] MEDS: ACCU-CHEK COMFORT CURVE STRIP VI SCH ×3 (12:53→22:00)
[2020-06-24] MEDS: FLUoxetine HCL 20 MG CAP PO SCH ×3 (12:59→22:00)
[2020-06-24] MEDS: InsuLIN REG 1unit/0.01ml Soln (100units/ml) SC SCH ×3 (13:00→22:00)
[2020-06-24] MEDS: SODIUM CHLOR 0.9% PF (SALINE LOCK) 10ML VIAL/SYR IV SCH ×2 (14:09→22:00)
[2020-06-24 14:20] VITALS: BP 90/60
--- NOTE | 2020-06-24 14:20 | NUR ---
Respiratory note: PLACED PT BACK ON BIPAP ON PREVIOUS SETTINGS. ABG TO FOLLOW IN 1 HR.
--- NOTE | 2020-06-24 15:54 | NUR ---
Respiratory note: CRITICAL ABG REPORTED TO . CHANGED SETTINGS TO /, NO FOLLOW UP ABG UNTIL AFTER DIRECTOR OF CONSUMER MARKETING HAS CONSULTED THE PATIENT.
[2020-06-24 16:00] VITALS: BP 119/47
[2020-06-24] MEDS ORDERED: WARFARIN SODIUM 2 MG TAB PO SCH (17:00)
[2020-06-24] MEDS: DONEPEZIL HYDROCHLORIDE 5 MG TAB PO SCH (17:42)
[2020-06-24 17:51] VITALS: BP 100/35
[2020-06-24 20:09] VITALS: BP 84/25
--- NOTE | 2020-06-24 21:10 | NUR ---
Telemetry admit from ER SHERIN BRITO admitted to Telemetry unit after SBAR received. Patient is lethergic. Per LITHOGRAPHIC CAMERA OPERATOR, patient has become lethargic after receiving morphine. Patient response to painful stimuli. Patient now on continuous telemetry monitoring, tele box #63 and telemetry reading on arrival to unit is AFIB 65. Patient placed on bedside oxygen, weighed by bedscale. RT is at bedside. Patient has been placed on BIPAP. Bed has been locked in lowest position.
[2020-06-24] MEDS: PRAVASTATIN SODIUM 20 MG TAB PO SCH (22:00)
--- NOTE | 2020-06-24 22:45 | NUR ---
PATIENT CONTINUE TO BE ALERTED and only responsive to painful stimuli. Hospitalist Nick has been made aware. Order for Narcan 0.2 mg has been received.
[2020-06-24] MEDS ORDERED: NALOXONE HCL 0.4 MG/ML VIAL IV ONE (23:00)
--- NOTE | 2020-06-24 23:00 | NUR ---
Admission Admission questions obtained by daughter Carine (LENY). Daughter did not know patients pharmacy, home medications, or PCP. Daughter advice to call [facility] to obtain information. Will let primary nurse know.
--- NOTE | 2020-06-24 23:40 | NUR ---
DR. BLANCHARD IS AT BEDSIDE. STATES THAT HE WANTS THE PATIENT TO HAVE ANOTHER ABG DONE. WILL NOTIFY RT CARA.
[2020-06-24 23:42] VITALS: BP 114/57
--- NOTE | 2020-06-24 23:45 | NUR ---
IV insertion IV access obtained, via clean sterile technique by inserting 22 gauge catheter at R forearm after multiple attempt(s). IV secured properly. No trauma to site. Patient tolerated well.
[2020-06-25] VITALS (7 sets, daily range): BP systolic 114–144; BP diastolic 43–98
--- NOTE | 2020-06-25 00:09 | NUR ---
RUSSEL DRAWN. RESULTS REPORTED TO DR. BLANCHARD. IPAP INCREASED TO 24.
--- NOTE | 2020-06-25 00:15 | NUR ---
PATIENT IS SPONTANEOUSLY OPENING HER EYES AND RESPONDING TO TOUCH. WILL CONTINUE TO MONITOR THE PATIENT'S STATUS.
[2020-06-25] MEDS: FLUoxetine HCL 20 MG CAP PO SCH ×4 (06:00→21:49)
[2020-06-25] MEDS: SODIUM CHLOR 0.9% PF (SALINE LOCK) 10ML VIAL/SYR IV SCH ×3 (06:00→21:49)
[2020-06-25 06:29] LABS: Basophils # (auto) 0 10 ^3/uL (0-0.2); Basophils % (auto) 0.2 % (0.0-2.0); Eosinophils # (auto) 0.1 10 ^3/uL (0-0.8); Eosinophils % (auto) 0.5 % (0.0-7.0); Hematocrit 38.3 % (36.0-46.0); Hemoglobin 11.8 g/dL (12.2-16.2); Lymphocytes # (auto) 0.9 10 ^3/uL (0.4-5.4); Lymphocytes % (auto) 7.9 % (10.0-50.0); Mean Corpuscular Hemoglobin 28.8 pg (28.0-32.0); Mean Corpuscular Hgb Conc. 30.8 g/dL (32.0-36.0); Mean Corpuscular Volume 93.3 fL (80.0-100.0); Monocytes # (auto) 0.6 10 ^3/uL (0-1.3); Neutrophils # (auto) 9.6 10 ^3/uL (1.6-8.6); Neutrophils % (auto) 86.4 % (37.0-80.0); Nucleated Red Blood Cells % 0.1 %; Platelet Count (auto) 167 10^3/uL (140-450); Red Cell Distribution Width 15.2 % (11.8-14.3); White Blood Cell 11.1 10^3/uL (4.4-10.8)
[2020-06-25] MEDS: ACCU-CHEK COMFORT CURVE STRIP VI SCH ×4 (06:34→21:49)
[2020-06-25] MEDS: InsuLIN REG 1unit/0.01ml Soln (100units/ml) SC SCH ×4 (06:34→21:50)
[2020-06-25 06:41] LABS: INR 3.58 (0.9-1.15); Partial Thromboplastin Time 40.6 sec (23.0-31.2)
[2020-06-25 06:47] LABS: Albumin 2.6 g/dL (3.4-5.0); Calcium 9.2 mg/dL (8.5-10.1); Potassium 4.8 mmol/L (3.5-5.1)
[2020-06-25 06:51] LABS: BUN/Creatinine Ratio 40.3; Bilirubin, Total 0.5 mg/dL (0.2-1.0); Total Protein 7.1 g/dL (6.4-8.2)
[2020-06-25] MEDS: DIGOXIN 0.125 MG TAB PO SCH (10:00)
[2020-06-25] MEDS: MULTIPLE VITAMIN TAB PO SCH (10:00)
[2020-06-25] MEDS: FAMOTIDINE 20 MG TAB PO SCH ×2 (10:00→21:49)
[2020-06-25] MEDS: ASCORBIC ACID 500 MG TAB PO SCH ×2 (10:00→21:49)
[2020-06-25] MEDS: CARVEDILOL 12.5 MG TAB PO SCH ×2 (10:00→21:49)
[2020-06-25] MEDS: INSULIN LANTUS (GLARGINE) 1 /0.01ml (100units/ml) SC SCH (10:00)
[2020-06-25] MEDS: VANCOMYCIN 1GM/250ML 250 ML IV SCH (11:46)
[2020-06-25] MEDS: FUROSEMIDE 40 MG/4 ML VIAL IV SCH (11:46)
[2020-06-25] MEDS: levoFLOXacin 750MG 150 ML IV SCH (11:46)
--- NOTE | 2020-06-25 13:15 | NUR ---
DR DANG AND MEÑO NUÑEZ NOTIFIED OF PATIENTS GRAM + BLOOD CULTURES.
--- NOTE | 2020-06-25 14:30 | NUR ---
PATIENT REMOVING HER BIPAP MASK, EDUCATED PATIENT ON THE NEED TO KEEP IT ON. PATIENT VERBALIZED UNDERSTANDING. PATIENT MASK REPLACED .
--- NOTE | 2020-06-25 16:15 | NUR ---
MEÑO NUÑEZ NOTIFIED OF PATIENTS POSITIVE MRSA.
--- NOTE | 2020-06-25 17:30 | NUR ---
PATIENT REMOVING BIPAP MASK EDUCATED PATIENT ON THE NEED TO KEEP ON, PATIENT GIVEN SOME WATER AND MASK REPLACED
[2020-06-25] MEDS: DONEPEZIL HYDROCHLORIDE 5 MG TAB PO SCH (18:00)
--- NOTE | 2020-06-25 19:00 | NUR ---
Opening Shift Note Assumed care of patient, awake and alert. No S/S of distress/SOB or pain. Instructed on POC and to call for assist PRN, will continue to monitor for changes Q1hr and PRN. Patient has a sitter due to removing her mask constantly, patient in the lowest possible position with call light within reach. Will continue to monitor patient.
--- NOTE | 2020-06-25 20:30 | NUR ---
Patient unable to eat with Bipap, respiratory changed patient over to an oxymizer on 8L O2, patient was satting in the high 90s, will continue to monitor patient and call respiratory if anything changes.
--- NOTE | 2020-06-25 20:30 | NUR ---
Respiratory note: PT TAKEN OFF BIPAP AT THIS TIME SO THAT SHE CAN EAT. PT PLACED ON AN 8L OXYMIZER AND TOLERATING WELL. SHE IS CURRENTLY SATURATING 98%. SITTER AT BEDSIDE BEGINNING TO FEED THE PT.
[2020-06-25] MEDS: PRAVASTATIN SODIUM 20 MG TAB PO SCH (21:49)
[2020-06-26 05:10] VITALS: BP 96/56
[2020-06-26] MEDS: SODIUM CHLOR 0.9% PF (SALINE LOCK) 10ML VIAL/SYR IV SCH ×3 (05:51→21:48)
[2020-06-26] MEDS: FLUoxetine HCL 20 MG CAP PO SCH ×4 (06:07→21:48)
[2020-06-26] MEDS: HYDROcodone-ACET 5/325MG TAB PO PRN ×4 (06:08→21:49)
[2020-06-26] MEDS: InsuLIN REG 1unit/0.01ml Soln (100units/ml) SC SCH ×4 (06:08→21:56)
[2020-06-26] MEDS: ACCU-CHEK COMFORT CURVE STRIP VI SCH ×4 (06:08→21:49)
[2020-06-26 06:25] LABS: INR 3.74 (0.9-1.15)
[2020-06-26 06:42] LABS: Basophils # (auto) 0 10 ^3/uL (0-0.2); Basophils % (auto) 0.3 % (0.0-2.0); Eosinophils # (auto) 0.2 10 ^3/uL (0-0.8); Eosinophils % (auto) 3.7 % (0.0-7.0); Hematocrit 35.2 % (36.0-46.0); Hemoglobin 10.9 g/dL (12.2-16.2); Lymphocytes # (auto) 0.9 10 ^3/uL (0.4-5.4); Lymphocytes % (auto) 15.7 % (10.0-50.0); Mean Corpuscular Hemoglobin 28.6 pg (28.0-32.0); Mean Corpuscular Hgb Conc. 31.1 g/dL (32.0-36.0); Monocytes # (auto) 0.5 10 ^3/uL (0-1.3); Monocytes % (auto) 8.1 % (0.0-12.0); Neutrophils # (auto) 4.3 10 ^3/uL (1.6-8.6); Neutrophils % (auto) 72.2 % (37.0-80.0); Nucleated Red Blood Cells % 0.2 %; Platelet Count (auto) 164 10^3/uL (140-450); Red Blood Cells 3.83 10^6/uL (4.0-5.20); Red Cell Distribution Width 14.6 % (11.8-14.3)
[2020-06-26 06:56] LABS: Albumin 2.2 g/dL (3.4-5.0)
--- NOTE | 2020-06-26 07:50 | NUR ---
Opening Shift Note Assumed care of patient, awake and alert. No S/S of distress/SOB or pain. Instructed on POC and to call for assist PRN, will continue to monitor for changes Q1hr and PRN. Bed locked in lowest position with two side rails up and call light in reach.
[2020-06-26 08:00] VITALS: BP 121/50
[2020-06-26 09:42] VITALS: BP 121/50
[2020-06-26] MEDS: CARVEDILOL 12.5 MG TAB PO SCH ×2 (10:00→21:48)
[2020-06-26] MEDS: INSULIN LANTUS (GLARGINE) 1 /0.01ml (100units/ml) SC SCH (10:00)
[2020-06-26] MEDS: FUROSEMIDE 40 MG/4 ML VIAL IV SCH (10:23)
[2020-06-26] MEDS: levoFLOXacin 750MG 150 ML IV SCH (10:23)
[2020-06-26] MEDS: VANCOMYCIN 1GM/250ML 250 ML IV SCH (10:23)
[2020-06-26] MEDS: FAMOTIDINE 20 MG TAB PO SCH ×2 (10:24→21:48)
[2020-06-26] MEDS: MULTIPLE VITAMIN TAB PO SCH (10:24)
[2020-06-26] MEDS: ASCORBIC ACID 500 MG TAB PO SCH ×2 (10:24→21:49)
[2020-06-26] MEDS: DIGOXIN 0.125 MG TAB PO SCH (10:27)
--- NOTE | 2020-06-26 11:48 | NUR ---
Respiratory note: PT TAKEN OFF BIPAP TO EAT AND LET HER FACE REST. PT STARTED CRYING AND STATED HER FACE HURT. PT PLACED ON 10L OXYMIZER HR 78, RR 22, POX 98%. NO SOB OR DISTRESS NOTED AT THIS TIME.
[2020-06-26 13:00] VITALS: BP 118/56
--- NOTE | 2020-06-26 16:42 | NUR ---
SPOKE TO DR DANG AND PER DR ALTON NUÑEZ WILL BE IN TO SEE PATIENT.
[2020-06-26] MEDS: DONEPEZIL HYDROCHLORIDE 5 MG TAB PO SCH (17:02)
[2020-06-26 17:12] VITALS: BP 144/58
--- NOTE | 2020-06-26 19:00 | NUR ---
Opening Shift Note Assumed care of patient, awake and alert. No S/S of pain, patient on 2L Oxymizer currently and has a pulse oxygen level of 90%, RT stated to monitor if patient goes below 88 we will need to adjust the oxygen, will continue to monitor O2 Saturation. Instructed on POC and to call for assist PRN, will continue to monitor for changes Q1hr and PRN. Patient is a sitter patient with sitter in the room, patient is in the lowest possible position with call light within reach.
--- NOTE | 2020-06-26 20:30 | NUR ---
Patient turned on her right side.
[2020-06-26] MEDS: PRAVASTATIN SODIUM 20 MG TAB PO SCH (21:48)
[2020-06-26 22:00] VITALS: BP 117/44
[2020-06-27] VITALS (9 sets, daily range): BP systolic 120–165; BP diastolic 50–85
[2020-06-27 06:18] LABS: INR 1.68 (0.9-1.15); Partial Thromboplastin Time 31.9 sec (23.0-31.2)
[2020-06-27] MEDS: FLUoxetine HCL 20 MG CAP PO SCH ×4 (06:29→23:48)
[2020-06-27] MEDS: SODIUM CHLOR 0.9% PF (SALINE LOCK) 10ML VIAL/SYR IV SCH ×3 (06:29→23:51)
[2020-06-27] MEDS: ACCU-CHEK COMFORT CURVE STRIP VI SCH ×4 (06:29→22:00)
[2020-06-27] MEDS: InsuLIN REG 1unit/0.01ml Soln (100units/ml) SC SCH ×4 (06:30→22:00)
--- NOTE | 2020-06-27 06:34 | NUR ---
Respiratory note: PATIENT TAKEN OFF BIPAP AT THIS TIME AND PLACED ON 2LPM OXYMIZER. SPO2 MAINTAINS AT 92%. PATIENT SHOWING LOTS OF REDNESS AND IS COMPLAINING OF SEVERE DISCOMFORT FROM BIPAP MASK. WILL ATTEMPT DIFFERENT MASK WHEN REAPPLYING MASK FOR BIPAP THERAPY.
--- NOTE | 2020-06-27 07:20 | NUR ---
Opening Shift Note Assumed care of patient, awake and alert X3. No S/S of pain, patient on 2L Oxymizer currently and has a pulse oxygen level of 93%, will continue to monitor O2 Saturation. Hogan hung to gravity and draining yellow urine. Instructed on POC and to call for assist PRN, will continue to monitor for changes Q1hr and PRN. Patient is a sitter patient with sitter in the room for safety, patient is in the lowest possible position with call light within reach.
[2020-06-27] MEDS: VANCOMYCIN 1GM/250ML 250 ML IV SCH ×2 (09:29→23:50)
[2020-06-27] MEDS: ASCORBIC ACID 500 MG TAB PO SCH ×2 (10:00→23:48)
--- NOTE | 2020-06-27 10:07 | NUR ---
Dr. Suero at bed side
--- NOTE | 2020-06-27 10:15 | NUR ---
Patient off bipap since 633, o2 sats remain between 88%-93%. Per RT Rell and MD Suero that range is acceptable for pt. Per MD if patients stats stay above 88% ok to keep at 2L oxymizer and off bipap. Will monitor closely. Continuous o2 sat connected/
[2020-06-27] MEDS: levoFLOXacin 750MG 150 ML IV SCH (10:20)
[2020-06-27] MEDS: FAMOTIDINE 20 MG TAB PO SCH (10:20)
[2020-06-27] MEDS: INSULIN LANTUS (GLARGINE) 1 /0.01ml (100units/ml) SC SCH (10:20)
[2020-06-27] MEDS: CARVEDILOL 12.5 MG TAB PO SCH ×2 (10:20→23:49)
[2020-06-27] MEDS: MULTIPLE VITAMIN TAB PO SCH (10:20)
[2020-06-27] MEDS: DIGOXIN 0.125 MG TAB PO SCH (10:20)
[2020-06-27] MEDS: FUROSEMIDE 40 MG/4 ML VIAL IV SCH (11:02)
[2020-06-27] MEDS ORDERED: methylPREDNISolone SOD SUCC 40 MG/ML VL IV ONE (11:30)
--- NOTE | 2020-06-27 14:23 | NUR ---
Nutrition Assessment Notes please see attached link for complete assessment Est Energy needs ABW 86 k-1720kcals (17-20 kcal/kgABW), Est Protein needs: 86-94 gms/day (1.0-1.1 gm/kgABW). Will continue to monitor and reassess prn. Addendum: 06/27/20 at [address] Amended: Links added.
--- NOTE | 2020-06-27 16:30 | NUR ---
MEÑO Castillo at bed side
[2020-06-27] MEDS ORDERED: WARFARIN SODIUM 2 MG TAB PO ONE ×2 (17:00→18:30)
--- NOTE | 2020-06-27 17:30 | NUR ---
ONE TIME DOSE 1700 Coumadin held for possible intervention in AM by IR
--- NOTE | 2020-06-27 17:50 | NUR ---
UA collected and sent to lab as per order
--- NOTE | 2020-06-27 18:09 | NUR ---
Per US Tech Abril anticipate procedure in AM, light breakfast ok.
--- NOTE | 2020-06-27 18:16 | NUR ---
MD Quinones paged for possible IR orders. Will await call back.
[2020-06-27] MEDS: DONEPEZIL HYDROCHLORIDE 5 MG TAB PO SCH (18:18)
--- NOTE | 2020-06-27 18:24 | NUR ---
Spoke to MEÑO Castillo in regards of Chest US results, dues to size no intervention needed by radiology, will resume coumadin.
[2020-06-27] MEDS: MUPIROCIN 2% OINT 15gm or 22gm EACHNOSTRI SCH (22:00)
[2020-06-27] MEDS: PRAVASTATIN SODIUM 20 MG TAB PO SCH (23:48)
[2020-06-28] VITALS (9 sets, daily range): BP systolic 126–160; BP diastolic 58–84
[2020-06-28] MEDS: FAMOTIDINE 20 MG TAB PO SCH ×3 (00:17→22:22)
[2020-06-28] MEDS: FLUoxetine HCL 20 MG CAP PO SCH ×4 (05:53→22:22)
[2020-06-28] MEDS: SODIUM CHLOR 0.9% PF (SALINE LOCK) 10ML VIAL/SYR IV SCH ×3 (05:54→22:00)
[2020-06-28] MEDS: InsuLIN REG 1unit/0.01ml Soln (100units/ml) SC SCH ×4 (05:54→22:40)
[2020-06-28] MEDS: ACCU-CHEK COMFORT CURVE STRIP VI SCH ×4 (05:59→22:00)
--- NOTE | 2020-06-28 07:15 | NUR ---
PT TURNED Q2 THROUGHOUT THE NIGHT;LINEN CHANGED;TOLERATED WELL WITH SITTER AT BEDSIDE.
[2020-06-28 07:17] LABS: Basophils # (auto) 0 10 ^3/uL (0-0.2); Eosinophils # (auto) 0 10 ^3/uL (0-0.8); Hematocrit 36.8 % (36.0-46.0); Hemoglobin 11.8 g/dL (12.2-16.2); INR 1.48 (0.9-1.15); Lymphocytes # (auto) 0.8 10 ^3/uL (0.4-5.4); Lymphocytes % (auto) 11.7 % (10.0-50.0); Mean Corpuscular Hemoglobin 28.9 pg (28.0-32.0); Mean Corpuscular Hgb Conc. 32.2 g/dL (32.0-36.0); Mean Corpuscular Volume 89.9 fL (80.0-100.0); Monocytes # (auto) 0.4 10 ^3/uL (0-1.3); Monocytes % (auto) 6.2 % (0.0-12.0); Neutrophils # (auto) 5.8 10 ^3/uL (1.6-8.6); Neutrophils % (auto) 82.1 % (37.0-80.0); Platelet Count (auto) 196 10^3/uL (140-450); Potassium 4.1 mmol/L (3.5-5.1); Red Blood Cells 4.09 10^6/uL (4.0-5.20); Red Cell Distribution Width 14.3 % (11.8-14.3); White Blood Cell 7.1 10^3/uL (4.4-10.8)
[2020-06-28 07:29] LABS: Albumin 2.4 g/dL (3.4-5.0); Bilirubin, Total 0.4 mg/dL (0.2-1.0); Calcium 9.1 mg/dL (8.5-10.1); Magnesium 2.1 mg/dL (1.6-2.6); Phosphorus 2.5 mg/dL (2.5-4.90); Total Protein 6.5 g/dL (6.4-8.2)
--- NOTE | 2020-06-28 08:21 | NUR ---
SPRAGGER Chuyita Castillo aware of patients labs (co2 and ABG)
[2020-06-28] MEDS: VANCOMYCIN 1GM/250ML 250 ML IV SCH ×2 (08:46→21:00)
--- NOTE | 2020-06-28 09:45 | NUR ---
PT. ASSESSED, PT. IS RESTING AT THIS TIME. PT. WOKE UP, I ASKED PT. IF SHE COULD WEAR THE BIPAP FOR A WHILE, DUE TO HER INCREASED C02, BUT SHE REFUSED TO WEAR. SHE IS CURRENTLY ON A 3LPM OXYMIZER, SP02 95%. PT. DOES ANSWER QUESTIONS APPROPRIATELY AT THIS TIME.
[2020-06-28] MEDS: methylPREDNISolone SOD SUCC 40 MG/ML VL IV SCH (10:31)
[2020-06-28] MEDS: FUROSEMIDE 40 MG/4 ML VIAL IV SCH (10:31)
[2020-06-28] MEDS: levoFLOXacin 750MG 150 ML IV SCH (10:31)
[2020-06-28] MEDS: MULTIPLE VITAMIN TAB PO SCH (10:32)
[2020-06-28] MEDS: ASCORBIC ACID 500 MG TAB PO SCH ×2 (10:32→22:22)
[2020-06-28] MEDS: CARVEDILOL 12.5 MG TAB PO SCH ×2 (10:32→22:24)
[2020-06-28] MEDS: DIGOXIN 0.125 MG TAB PO SCH (10:32)
[2020-06-28] MEDS: INSULIN LANTUS (GLARGINE) 1 /0.01ml (100units/ml) SC SCH (10:33)
[2020-06-28] MEDS: MUPIROCIN 2% OINT 15gm or 22gm EACHNOSTRI SCH ×2 (10:34→22:00)
--- NOTE | 2020-06-28 11:25 | NUR ---
PT. PLACED BACK ON BIPAP PER FRANCISCA BROCK N.P. ORDERS, PER RN.
--- NOTE | 2020-06-28 11:30 | NUR ---
Patient goes cayden/afib 30's-60's when she is on bipap, this is known from her admission.
--- NOTE | 2020-06-28 14:28 | NUR ---
1411 06/28/20 - Faxed to [facility] at [phone] face sheet, order for DC back to [facility] ([facility]) today, requesting authorization for facility. Contacted [facility] SENTHIL Dawn at [phone], unable to speak with her left message on voicemail with info as stated above, also left call back info. Pending review and approved authorization. Addendum: 06/28/20 at 1514 by Myra Clemons RN 1510 Contacted by [facility] SENTHIL Dawn who provided the following authorizations for transportation [id number] [facility] [id number].
--- NOTE | 2020-06-28 16:26 | NUR ---
CALL #1 ATTEMPT TO GIVE REPORT TO ANA CRISTINA SANCHEZ, PHONE RINGS MULTIPLE TIMES AND THEN GOES BACK TO AUTOMATED RESPONSE. NO ANSWER.
--- NOTE | 2020-06-28 16:29 | NUR ---
assessment Per consult, dc back to SNF today. Per patients daughter Ya patient will return to [facility]. MD order has been sent to [facility]. Per Dee Dee patient will be admitted to room 26a and Dr Lazar is the accepting MD. Auth for transportation is [id number] for facility it is [id number]. Ya verbalized understanding and agreed to discharge plan [facility] to [facility]. [facility] transportation form has been sent to [facility] transport [phone] fax [phone] for 530pm picker and packer Addendum: 06/28/20 at 1637 by Deanne Aleman Amended: Links added.
--- NOTE | 2020-06-28 16:45 | NUR ---
called gustavo dickinson again to give report, report given.
[2020-06-28] MEDS ORDERED: WARFARIN SODIUM 5 MG TAB PO ONE (17:00)
--- NOTE | 2020-06-28 17:08 | NUR ---
phone number for transport [phone], booked for "next available dump truck driver [place] [address]".
[2020-06-28] MEDS: DONEPEZIL HYDROCHLORIDE 5 MG TAB PO SCH (17:48)
--- NOTE | 2020-06-28 17:54 | NUR ---
CALLED TRANSPORT FOR ETA, PER [facility] IS [employer] AND [employer]OX ETA IS 6:40PM.
--- NOTE | 2020-06-28 19:00 | NUR ---
Opening Shift Note Assumed care of patient, awake and alert. No S/S of distress/SOB or pain. Instructed on POC and to call for assist PRN, will continue to monitor for changes Q1hr and PRN. Addendum: 06/29/20 at 0022 by ALTA CASTRO RN RN Pt has a sitter for safety
--- NOTE | 2020-06-28 21:15 | NUR ---
Called to [facility] transport, spoke to Nereyda and state the dispatch is working on looking for a route delivery service driver to transport the patient. Nereyda states to call back in 15 minutes for update.
--- NOTE | 2020-06-28 21:53 | NUR ---
Jonathan from [facility] transport called and states they are still working on transportation and will call me back once available.
--- NOTE | 2020-06-28 22:08 | NUR ---
Received call from [facility] [employer]patch [phone], states patient will be picked up karin at 10 AM by [facility] transport.
[2020-06-28] MEDS: PRAVASTATIN SODIUM 20 MG TAB PO SCH (22:22)
--- NOTE | 2020-06-28 22:23 | NUR ---
Informed Dr. Quinones that patient is not going to [facility] due to transportation issue. RN also asked MD if we need to put a new IV line and if discharge is going to be held. Awaiting for call back.
--- NOTE | 2020-06-28 23:35 | NUR ---
Received acknowledgement from Dr. Quinones with order to put a new IV line and to discharge patient tomorrow at 10AM.
--- NOTE | 2020-06-28 23:43 | NUR ---
ATTEMPTED TO PLACE PT ON BIPAP. PT BECAME AGITATED AND STATED SHE DIDN'T WANT TO WEAR BECAUSE IT IS TOO TIGHT. EXPLAINED TO PT THAT CPAP MASK NEEDS TO BE SNUG FITTING AND SHE STILL REFUSE. SITTER AT BEDSIDE. INFORMED SITTER TO PAGE IF PT STATUS CHANGED. SHE REMAINS ON 3L OXYMIZER.
--- NOTE | 2020-06-29 00:49 | NUR ---
IV insertion IV access obtained, via clean sterile technique by inserting 22 gauge catheter at right forearm after 1 attempt. IV secured properly. No trauma to site. Patient tolerated well.
[2020-06-29 05:00] VITALS: BP 147/63
[2020-06-29] MEDS: SODIUM CHLOR 0.9% PF (SALINE LOCK) 10ML VIAL/SYR IV SCH (06:00)
--- NOTE | 2020-06-29 06:29 | NUR ---
Respiratory note: Received pt from bariatric physician RT. Pt is on 3lpm oxymizer, HR 65, RR 20, SPO2 99%. Pt says she doesn't need BIPAP at this time. Pt is awake, alert, no s/s of distress. BIPAP on standby at bedside. Advised pt to call for RT if needed. Sitter at bedside and aware to call as well.
[2020-06-29] MEDS: FLUoxetine HCL 20 MG CAP PO SCH (06:55)
[2020-06-29] MEDS: InsuLIN REG 1unit/0.01ml Soln (100units/ml) SC SCH (06:58)
[2020-06-29] MEDS: ACCU-CHEK COMFORT CURVE STRIP VI SCH (06:58)
[2020-06-29 07:25] LABS: Basophils # (auto) 0 10 ^3/uL (0-0.2); Basophils % (auto) 0.1 % (0.0-2.0); Eosinophils # (auto) 0 10 ^3/uL (0-0.8); Hematocrit 37.8 % (36.0-46.0); Lymphocytes # (auto) 0.8 10 ^3/uL (0.4-5.4); Lymphocytes % (auto) 9.8 % (10.0-50.0); Mean Corpuscular Hemoglobin 28.5 pg (28.0-32.0); Mean Corpuscular Hgb Conc. 31.8 g/dL (32.0-36.0); Mean Corpuscular Volume 89.7 fL (80.0-100.0); Monocytes # (auto) 0.5 10 ^3/uL (0-1.3); Monocytes % (auto) 6.2 % (0.0-12.0); Neutrophils # (auto) 6.6 10 ^3/uL (1.6-8.6); Neutrophils % (auto) 83.9 % (37.0-80.0); Platelet Count (auto) 187 10^3/uL (140-450); Red Blood Cells 4.21 10^6/uL (4.0-5.20); Red Cell Distribution Width 14.6 % (11.8-14.3); White Blood Cell 7.9 10^3/uL (4.4-10.8)
[2020-06-29 07:41] LABS: INR 1.84 (0.9-1.15); Partial Thromboplastin Time 30.1 sec (23.0-31.2)
[2020-06-29] MEDS: VANCOMYCIN 1GM/250ML 250 ML IV SCH (09:00)
[2020-06-29] MEDS: methylPREDNISolone SOD SUCC 40 MG/ML VL IV SCH (10:00)
[2020-06-29] MEDS: INSULIN LANTUS (GLARGINE) 1 /0.01ml (100units/ml) SC SCH (10:00)
[2020-06-29] MEDS: levoFLOXacin 750MG 150 ML IV SCH (10:00)
[2020-06-29] MEDS: ASCORBIC ACID 500 MG TAB PO SCH (10:00)
[2020-06-29] MEDS: MUPIROCIN 2% OINT 15gm or 22gm EACHNOSTRI SCH (10:00)
[2020-06-29] MEDS: MULTIPLE VITAMIN TAB PO SCH (10:00)
[2020-06-29] MEDS: FAMOTIDINE 20 MG TAB PO SCH (10:00)
[2020-06-29] MEDS: FUROSEMIDE 40 MG/4 ML VIAL IV SCH (10:00)
[2020-06-29] MEDS: CARVEDILOL 12.5 MG TAB PO SCH (10:00)
[2020-06-29] MEDS: DIGOXIN 0.125 MG TAB PO SCH (10:00)
--- NOTE | 2020-06-29 10:40 | NUR ---
TRANSPORT HERE FOR PATIENT. PAPERWORK GIVEN, AND IV DISCONTINUED.
[2020-06-29] MEDS ORDERED: WARFARIN SODIUM 2 MG TAB PO ONE (17:00)
== END 2020-06-29 11:07 | DRG 871 ==
LOC: EDBD 00:36 → ER 00:43 → TELE 00:44 → TELE-WESTW 21:07
PROVIDERS: ADMIT Nurse Practitioner Family; ATTEND Internal Medicine
PROC: 5A09457 Assistance with Respiratory Ventilation, 24-96 Consecutive Hours, Continuous Positive Airway Pressure (ICD-10-PCS; 2020-06-24)
PROC: 5A09357 Assistance with Respiratory Ventilation, Less than 24 Consecutive Hours, Continuous Positive Airway Pressure (ICD-10-PCS; principal; 2020-06-26)
PROC: 5A09357 Assistance with Respiratory Ventilation, Less than 24 Consecutive Hours, Continuous Positive Airway Pressure (ICD-10-PCS; 2020-06-27)
PROC: 5A09357 Assistance with Respiratory Ventilation, Less than 24 Consecutive Hours, Continuous Positive Airway Pressure (ICD-10-PCS; 2020-06-28)
DX: A41.9 Sepsis, unspecified organism (principal); J18.9 Pneumonia, unspecified organism; J96.21 Acute and chronic respiratory failure with hypoxia; J96.22 Acute and chronic respiratory failure with hypercapnia; J44.1 Chronic obstructive pulmonary disease with (acute) exacerbation; N39.0 Urinary tract infection, site not specified; I48.20 Chronic atrial fibrillation, unspecified; J44.0 Chronic obstructive pulmonary disease with (acute) lower respiratory infection; I13.0 Hypertensive heart and chronic kidney disease with heart failure and stage 1 through stage 4 chronic kidney disease, or unspecified chronic kidney disease; Z68.43 Body mass index [BMI] 50.0-59.9, adult; Z66 Do not resuscitate; E11.40 Type 2 diabetes mellitus with diabetic neuropathy, unspecified; E11.22 Type 2 diabetes mellitus with diabetic chronic kidney disease; E66.01 Morbid (severe) obesity due to excess calories; F03.90 Unspecified dementia, unspecified severity, without behavioral disturbance, psychotic disturbance, mood disturbance, and anxiety; I50.9 Heart failure, unspecified; E78.5 Hyperlipidemia, unspecified; F41.9 Anxiety disorder, unspecified; Z20.828 Contact with and (suspected) exposure to other viral communicable diseases; N18.9 Chronic kidney disease, unspecified; R65.20 Severe sepsis without septic shock; Z82.49 Family history of ischemic heart disease and other diseases of the circulatory system; Z83.3 Family history of diabetes mellitus; Z86.73 Personal history of transient ischemic attack (TIA), and cerebral infarction without residual deficits; Z79.01 Long term (current) use of anticoagulants; Z90.710 Acquired absence of both cervix and uterus; Z88.0 Allergy status to penicillin
CPT/HCPCS: 36415; 36600; 71045; 76604; 80053; 80202; 81001; 82040; 82565; 82805; 82962; 83036; 83605; 83735; 83880; 84100; 84484; 85025; 85379; 85610; 85730; 87040; 87077; 87081; 87086; 87186; 87426; 94660; G0378; J1815; J1956; J2405

== ENCOUNTER 2020-06-30 20:24 | Inpatient (IN) | payer MEDICARE, MEDICAID ==
[~2020-06-30] VITALS: Ht 167.6 cm; Wt 122.8 kg
[2020-06-30 22:11] LABS: Basophils # (auto) 0 10 ^3/uL (0-0.2); Basophils % (auto) 0.1 % (0.0-2.0); Eosinophils # (auto) 0 10 ^3/uL (0-0.8); Eosinophils % (auto) 0.2 % (0.0-7.0); Hematocrit 43.2 % (36.0-46.0); Hemoglobin 13.5 g/dL (12.2-16.2); Lymphocytes # (auto) 0.6 10 ^3/uL (0.4-5.4); Lymphocytes % (auto) 6.3 % (10.0-50.0); Mean Corpuscular Hemoglobin 28.7 pg (28.0-32.0); Mean Corpuscular Hgb Conc. 31.1 g/dL (32.0-36.0); Mean Corpuscular Volume 92.2 fL (80.0-100.0); Monocytes # (auto) 0.6 10 ^3/uL (0-1.3); Monocytes % (auto) 5.8 % (0.0-12.0); Neutrophils # (auto) 8.4 10 ^3/uL (1.6-8.6); Neutrophils % (auto) 87.6 % (37.0-80.0); Platelet Count (auto) 203 10^3/uL (140-450); Red Blood Cells 4.69 10^6/uL (4.0-5.20); Red Cell Distribution Width 15.4 % (11.8-14.3); White Blood Cell 9.6 10^3/uL (4.4-10.8)
[2020-06-30 22:29] LABS: Albumin 2.9 g/dL (3.4-5.0); Calcium 9.4 mg/dL (8.5-10.1); Potassium 4.1 mmol/L (3.5-5.1)
[2020-06-30 22:35] LABS: BUN/Creatinine Ratio 36.8; Bilirubin, Total 0.5 mg/dL (0.2-1.0); Total Protein 7.3 g/dL (6.4-8.2)
[2020-07-01] MEDS ORDERED: FUROSEMIDE 20 MG/2 ML VIAL IV ONE (00:30)
[2020-07-01] MEDS ORDERED: LORazepam 2MG/ML-1ML VIAL ONE (00:50)
[2020-07-01 00:58] LABS: INR 1.96 (0.9-1.15); Partial Thromboplastin Time 30.2 sec (23.0-31.2)
[2020-07-01] MEDS ORDERED: LORazepam 2MG/ML-1ML VIAL IV ONE (01:00)
[2020-07-01] MEDS ORDERED: HYDROcodone-ACET 5/325MG TAB PO PRN (03:45)
[2020-07-01] MEDS ORDERED: NITROGLYCERIN 0.4 MG SL TAB SL PRN (03:45)
[2020-07-01] MEDS ORDERED: DOCUSATE SOD 100 MG CAP PO PRN (03:45)
[2020-07-01] MEDS ORDERED: ACETAMINOPHEN 325 MG TAB PO PRN (03:45)
[2020-07-01] MEDS ORDERED: MORPHINE SULF INJ 2 MG/ML SYRINGE 1ML IV PRN (03:45)
[2020-07-01] MEDS ORDERED: ONDANSETRON HCL 4 MG/2 ML VIAL IV PRN (03:45)
[2020-07-01 05:47] LABS: Urine Bacteria FEW /hpf (None Seen); Urine Blood 3+ /uL (Negative); Urine Hyaline Cast MANY /lpf (0 - 2); Urine Mucus FEW (None Seen); Urine WBC 8 /hpf (0 - 5); Urine WBC Clumps PRESENT /hpf (None Seen)
[2020-07-01 05:59] LABS: Basophils # (auto) 0 10 ^3/uL (0-0.2); Eosinophils # (auto) 0 10 ^3/uL (0-0.8); Eosinophils % (auto) 0.1 % (0.0-7.0); Hematocrit 42.3 % (36.0-46.0); Hemoglobin 13.2 g/dL (12.2-16.2); Lymphocytes # (auto) 0.8 10 ^3/uL (0.4-5.4); Lymphocytes % (auto) 9.6 % (10.0-50.0); Mean Corpuscular Hemoglobin 28.8 pg (28.0-32.0); Mean Corpuscular Hgb Conc. 31.1 g/dL (32.0-36.0); Mean Corpuscular Volume 92.4 fL (80.0-100.0); Monocytes # (auto) 0.6 10 ^3/uL (0-1.3); Neutrophils # (auto) 7.3 10 ^3/uL (1.6-8.6); Neutrophils % (auto) 83.3 % (37.0-80.0); Nucleated Red Blood Cells % 0.1 %; Platelet Count (auto) 181 10^3/uL (140-450); Red Blood Cells 4.57 10^6/uL (4.0-5.20); Red Cell Distribution Width 15.3 % (11.8-14.3); White Blood Cell 8.8 10^3/uL (4.4-10.8)
[2020-07-01] MEDS: FLUoxetine HCL 20 MG CAP PO SCH ×4 (06:00→23:05)
[2020-07-01] MEDS: FUROSEMIDE 20 MG/2 ML VIAL IV SCH ×2 (06:18→18:38)
[2020-07-01] MEDS: SODIUM CHLOR 0.9% PF (SALINE LOCK) 10ML VIAL/SYR IV SCH ×3 (06:18→23:01)
[2020-07-01 06:24] LABS: Albumin 2.7 g/dL (3.4-5.0); BUN/Creatinine Ratio 36.5; Calcium 9.6 mg/dL (8.5-10.1)
[2020-07-01 06:26] LABS: Bilirubin, Total 0.4 mg/dL (0.2-1.0)
[2020-07-01] MEDS ORDERED: DIGOXIN 0.125 MG TAB PO SCH (10:00)
[2020-07-01] MEDS: LOSARTAN POTASSIUM 25 MG TAB PO SCH (10:00)
[2020-07-01] MEDS: ASCORBIC ACID 500 MG TAB PO SCH ×2 (10:00→23:05)
[2020-07-01] MEDS: ZINC SULFATE 220mg CAP or TAB PO SCH (10:00)
[2020-07-01] MEDS: ENOXAPARIN SOD 40 MG/0.4 ML SYRINGE SC SCH (10:00)
[2020-07-01] MEDS: FAMOTIDINE 20 MG TAB PO SCH ×2 (10:00→23:04)
[2020-07-01] MEDS: CARVEDILOL 12.5 MG TAB PO SCH ×2 (10:00→23:04)
--- NOTE | 2020-07-01 13:00 | NUR ---
Respiratory note: PT WAS NOT WANTING TO LEAVE BIPAP ON. PT WAS PLACED TON 3 LPM NC. PT TOLERATING WELL.
--- NOTE | 2020-07-01 14:00 | NUR ---
PT FROM ER RECEIVED PT FROM ER. ORIENTED PT TO ROOM. BED IN LOWEST POSITION, TOP TWO SIDE RAILS UP, CALL LIGHT WITHIN REACH. RESPIRATORY THERAPIST AT BEDSIDE.
[2020-07-01] MEDS ORDERED: DEXTROSE (50%) 50ML SYRG IV PRN (16:30)
[2020-07-01] MEDS ORDERED: acetaZOLAMIDE SODIUM 500 MG VL IV ONE (16:30)
--- NOTE | 2020-07-01 16:30 | NUR ---
THIS RN NOTIFIED THE PRIMARY RN THAT THE PATIENT REQUIRES A MRSA OF THE NARES PER PROTOCOL. PRIMARY RN VERBALIZED UNDERSTANDING.
--- NOTE | 2020-07-01 17:15 | NUR ---
PT BEING MOVED TO CENTRAL TELE REPORT GIVEN TO ALEX ADAMS. PT BEING TRANSFERRED TO CENTRAL TELE/MEDSUR. PT STABLE AT THIS TIME. CALLED AND SPOKE TO RT TO MAKE AWARE OF CPAP ORDER FROM DR BYERS AND ORDER FROM DR SPRINGER.
[2020-07-01] MEDS: Glucerna Carbsteady SHAKE Vanilla 8oz PO SCH (18:00)
[2020-07-01] MEDS: ACCU-CHEK COMFORT CURVE STRIP VI SCH (18:28)
[2020-07-01] MEDS: InsuLIN REG 1unit/0.01ml Soln (100units/ml) SC SCH ×2 (18:29→23:06)
[2020-07-01] MEDS: DONEPEZIL HYDROCHLORIDE 5 MG TAB PO SCH (18:29)
--- NOTE | 2020-07-01 19:20 | NUR ---
Opening Shift Note Assumed care of patient, awake and alert x 1. No S/S of distress/SOB on 4L of O2 per NC no complain of or S/Sx of pain. Tele box matches and all leads are in position. Bed lowered and locked side rails up x 2 call light within reach. Sitter at bedside also instructed pt on POC and to call for assist PRN, will continue to monitor for changes Q1hr and PRN.
--- NOTE | 2020-07-01 20:20 | NUR ---
PLACED PT ON GRACE V60 BIPAP ([id number]), DUE ABG RESULTS. BIPAP CONNECTED TO RED OUTLET AND O2 SOURCE. ALARMS ARE SET AND AUDIBLE. AMBU BAG AND MASK AT BEDSIDE. PLACED PT ON SIZE MEDIUM MASK. NO BREAKDOWN NOTED PRIOR TO PLACEMENT. BS ARE DIMINISHED T/O. SITTER AT BEDSIDE AND AWARE I CAN BE PAGED AT ANY TIME THERE IS A CONCERN WITH PT AND OR DEPARTMENT EQUIPMENT. RT NAME AND PAGER ASSIGNMENT WRITTEN ON PTS ROOM BOARD. WILL CONTINUE TO MONITOR Q2H AND NEEDED. COMMUNICATED ANGIE LEMON OF BIPAP PLACEMENT AND ABG RESULTS.
[2020-07-01 22:00] VITALS: BP_SYST 116; BP_SYST 138; BP_DIAS 53; BP_DIAS 88
--- NOTE | 2020-07-01 22:45 | NUR ---
AT BEDSIDE FOR ROUTINE BIPAP CHECK. FIO2 TITRATED TO 40% VIA BIPAP. PT TOLERATING BIPAP WELL AND COMFORTABLY RESTING. RN ION NOTIFIED OF O2 CHANGE. WILL CONTINUE TO MONITOR.
--- NOTE | 2020-07-02 00:40 | NUR ---
REMOVED PT FROM BIPAP PLACED ON 4LPM NC DUE TO BIPAP READING NO OXYGEN BEING DELIVERED WHILE VENTILATING. TROUBLESHOOTING EQUIPMENT AND VERIFIED ALL CONNECTIONS WHERE CONNECTED AND NOT LOOSE. WALL OXYGEN SOURCE NOT WORKING PROPERLY FLOW METER FITS LOOSE TO WALL CONNECTION. PRIMARY RN ION AND CITY CONSTABLE GREY MADE AWARE. PLAN IS TO CHANGE PT ROOM TO WORKING WALL SOURCE BUT DUE TO PT BEING IN SITTER ROOM TWO PTS NEED TO BE MOVED. AWAITING NEW ROOM ASSIGNMENT AND ROOM TO BE CLEANED PRIOR TO MOVING. RT LEAD Vitor CHAVEZ AWARE OF PLAN FOR PT.
[2020-07-02 01:39] VITALS: BP 116/53
--- NOTE | 2020-07-02 02:05 | NUR ---
PT NOW IN ROOM 221 BED A, PLACED PT BACK ON BIPAP ON PREVIOUS SETTINGS BIPAP CONNECTED TO RED OUTLET AND O2 SOURCE IN NEW ROOM. SITTER AT BEDSIDE. WILL COMMUNICATE TO ANGIE LEMON OF PLACEMENT. RT NAME AND PAGER ASSIGNMENT WRITTEN IN PTS NEW ROOM. SITTER MADE REMINDED I CAN BE PAGED AT ANY TIME THERE IS A CONCERN WITH PT AND OR DEPARTMENT EQUIPMENT.
[2020-07-02] MEDS: ACCU-CHEK COMFORT CURVE STRIP VI SCH ×5 (03:41→22:00)
--- NOTE | 2020-07-02 04:04 | NUR ---
AT BEDSIDE FOR END OF SHIFT BIPAP CHECK. NO CHANGES MADE AT THIS TIME. PT COMFORTABLY SLEEPING. SITTER AT BEDSIDE. WILL HAVE DAY SHIFT CONTINUE POC.
[2020-07-02 05:00] VITALS: BP_SYST 119; BP_SYST 137; BP_DIAS 82; BP_DIAS 86
[2020-07-02] MEDS: FLUoxetine HCL 20 MG CAP PO SCH ×4 (05:52→22:00)
[2020-07-02] MEDS: FUROSEMIDE 20 MG/2 ML VIAL IV SCH ×2 (05:52→17:39)
[2020-07-02] MEDS: SODIUM CHLOR 0.9% PF (SALINE LOCK) 10ML VIAL/SYR IV SCH ×3 (05:52→22:00)
[2020-07-02] MEDS: InsuLIN REG 1unit/0.01ml Soln (100units/ml) SC SCH ×4 (06:49→22:00)
--- NOTE | 2020-07-02 07:40 | NUR ---
Opening Shift Note Assumed care of patient, awake and alert x1. No S/S of distress/SOB, c papin place,no s/s of pain. Sitter at bedside. Instructed on POC and to call for assist PRN, will continue to monitor for changes Q1hr and PRN.
--- NOTE | 2020-07-02 08:30 | NUR ---
Respiratory note: PT FOUND OFF BIPAP AT THIS TIME. NO RESPIRATORY DISTRESS NOTED. PT ON 2L NC, SPO2 97% HR 72 RR 20. SITTER AT BEDSIDE.
[2020-07-02 09:00] VITALS: BP 136/64
[2020-07-02] MEDS: Glucerna Carbsteady SHAKE Vanilla 8oz PO SCH ×3 (09:59→17:39)
[2020-07-02] MEDS: ZINC SULFATE 220mg CAP or TAB PO SCH (09:59)
[2020-07-02] MEDS: FAMOTIDINE 20 MG TAB PO SCH ×2 (10:00→22:00)
[2020-07-02] MEDS: ENOXAPARIN SOD 40 MG/0.4 ML SYRINGE SC SCH (10:00)
[2020-07-02] MEDS: ASCORBIC ACID 500 MG TAB PO SCH ×2 (10:00→22:00)
[2020-07-02] MEDS: CARVEDILOL 12.5 MG TAB PO SCH ×2 (10:17→22:00)
[2020-07-02] MEDS: LOSARTAN POTASSIUM 25 MG TAB PO SCH (10:18)
[2020-07-02] MEDS: INSULIN LANTUS (GLARGINE) 1 /0.01ml (100units/ml) SC SCH (10:19)
[2020-07-02 10:32] LABS: Basophils # (auto) 0 10 ^3/uL (0-0.2); Basophils % (auto) 0.2 % (0.0-2.0); Eosinophils # (auto) 0.1 10 ^3/uL (0-0.8); Eosinophils % (auto) 1.2 % (0.0-7.0); Hematocrit 39.3 % (36.0-46.0); Hemoglobin 12.2 g/dL (12.2-16.2); Lymphocytes # (auto) 1.2 10 ^3/uL (0.4-5.4); Lymphocytes % (auto) 14.3 % (10.0-50.0); Mean Corpuscular Hemoglobin 28.4 pg (28.0-32.0); Mean Corpuscular Hgb Conc. 31.1 g/dL (32.0-36.0); Mean Corpuscular Volume 91.2 fL (80.0-100.0); Monocytes # (auto) 0.7 10 ^3/uL (0-1.3); Monocytes % (auto) 7.8 % (0.0-12.0); Neutrophils # (auto) 6.6 10 ^3/uL (1.6-8.6); Neutrophils % (auto) 76.5 % (37.0-80.0); Nucleated Red Blood Cells % 0.1 %; Platelet Count (auto) 169 10^3/uL (140-450); Red Cell Distribution Width 15.1 % (11.8-14.3); White Blood Cell 8.6 10^3/uL (4.4-10.8)
[2020-07-02 11:04] LABS: Chloride 85 mmol/L (98-107); Potassium 3.5 mmol/L (3.5-5.1); Sodium 141 mmol/L (136-145)
[2020-07-02 11:15] LABS: Alanine Aminotransferase 27 U/L (13-56); Albumin 2.4 g/dL (3.4-5.0); Alkaline Phosphatase 95 U/L (45-117); Aspartate Aminotransferase 25 U/L (15-37); BUN/Creatinine Ratio 39.3; Bilirubin, Total 0.4 mg/dL (0.2-1.0); Blood Urea Nitrogen 22 mg/dL (7-18); Calcium 8.8 mg/dL (8.5-10.1); GFR African American 135 mL/min; GFR Non-African American 112 mL/min; Glucose 186 mg/dL (74-106)
[2020-07-02 11:16] LABS: Anion Gap 10.99999 (5-15)
[2020-07-02 11:19] LABS: Carbon Dioxide > 45 mmol/L (21-32)
[2020-07-02 13:00] VITALS: BP 123/57
[2020-07-02] MEDS: AZITHROMYCIN 500MG/ 250ML 250 ML IV SCH (16:23)
[2020-07-02 17:00] VITALS: BP 140/65
[2020-07-02] MEDS: DONEPEZIL HYDROCHLORIDE 5 MG TAB PO SCH (17:39)
--- NOTE | 2020-07-02 19:35 | NUR ---
Opening Shift Note Assumed care of patient, awake and alert x2. No S/S of distress/SOB. Patient does complain about back pain that she rates as a 7/10. Will treat with PRN pain medication. Sitter at bedside. Instructed on POC and to call for assist PRN, will continue to monitor for changes Q1hr and PRN.
[2020-07-02] MEDS: MORPHINE SULFATE 4 MG/ML SYR/VIAL IV PRN (19:50)
[2020-07-02 22:00] VITALS: BP 105/49
[2020-07-02] MEDS: PIPERACILLIN-TAZOB 3.375GM 100 ML IV SCH (22:00)
[2020-07-03] MEDS: MORPHINE SULFATE 4 MG/ML SYR/VIAL IV PRN ×3 (01:47→20:48)
[2020-07-03 04:00] VITALS: BP 130/59
--- NOTE | 2020-07-03 05:30 | NUR ---
PATIENT'S HEART RATE HAS BEEN BRADYCARDIC BETWEEN 60s AND 40s, WITH AN OCCASIONAL DROPS INTO THE 30s. PATIENT IS CURRENTLY ASYMPTOMATIC. VITAL SIGNS ARE STABLE - TEMP 98.8 BP 138/59, HR 50, RR 20, SPO2 94. EKG HAS BEEN OBTAINED AND SHOWED TO HOSPITALIST KAPIL. NO NEW ORDERS HAVE BEEN RECEIVED. WILL CONTINUE TO MONITOR THE PATIENT'S STATUS.
[2020-07-03] MEDS: PIPERACILLIN-TAZOB 3.375GM 100 ML IV SCH ×3 (06:10→22:00)
[2020-07-03] MEDS: SODIUM CHLOR 0.9% PF (SALINE LOCK) 10ML VIAL/SYR IV SCH ×3 (06:10→22:00)
[2020-07-03] MEDS: FLUoxetine HCL 20 MG CAP PO SCH ×4 (06:10→22:00)
[2020-07-03] MEDS: FUROSEMIDE 20 MG/2 ML VIAL IV SCH ×2 (06:10→17:10)
[2020-07-03] MEDS: InsuLIN REG 1unit/0.01ml Soln (100units/ml) SC SCH ×4 (06:21→23:10)
[2020-07-03] MEDS: ACCU-CHEK COMFORT CURVE STRIP VI SCH ×4 (06:22→22:00)
--- NOTE | 2020-07-03 07:30 | NUR ---
Respiratory note: PT REMOVED FROM BIPAP AND PLACED ON 2L NC. PT SATTING 93% HEART RATE 63. BREATH SOUNDS CLEAR/DIMINISHED. PT IN NO RESPIRATORY DISTRESS AT THIS TIME. BIPAP LEFT AT BEDSIDE. WILL CONTINUE TO MONITOR.
[2020-07-03 09:00] VITALS: BP 111/45
[2020-07-03] MEDS: Glucerna Carbsteady SHAKE Vanilla 8oz PO SCH ×3 (09:38→17:10)
[2020-07-03] MEDS: CARVEDILOL 12.5 MG TAB PO SCH ×2 (10:00→22:00)
[2020-07-03] MEDS: AZITHROMYCIN 500MG/ 250ML 250 ML IV SCH (10:57)
[2020-07-03] MEDS: ZINC SULFATE 220mg CAP or TAB PO SCH (10:57)
[2020-07-03] MEDS: LOSARTAN POTASSIUM 25 MG TAB PO SCH (10:58)
[2020-07-03] MEDS: FAMOTIDINE 20 MG TAB PO SCH ×2 (10:59→22:00)
[2020-07-03] MEDS: ASCORBIC ACID 500 MG TAB PO SCH ×2 (10:59→22:00)
[2020-07-03] MEDS: ENOXAPARIN SOD 40 MG/0.4 ML SYRINGE SC SCH (11:00)
[2020-07-03] MEDS: INSULIN LANTUS (GLARGINE) 1 /0.01ml (100units/ml) SC SCH (11:01)
--- NOTE | 2020-07-03 11:22 | NUR ---
Pt refused PT treatment today.
[2020-07-03] MEDS ORDERED: acetaZOLAMIDE SODIUM 500 MG VL IV ONE (11:45)
[2020-07-03 13:00] VITALS: BP 108/49
[2020-07-03 17:00] VITALS: BP 118/39
[2020-07-03] MEDS: DONEPEZIL HYDROCHLORIDE 5 MG TAB PO SCH (17:10)
[2020-07-03] MEDS: RIVAROXABAN 20 MG TAB PO SCH (17:12)
--- NOTE | 2020-07-03 17:13 | NUR ---
MEDICATION HELD FOR PROCEDURE XARELTO HELD PATIENT IS GOING TO RECEIVE A THORACENTESIS ON 07/04
--- NOTE | 2020-07-03 17:28 | NUR ---
NOTIFIED FRANCISCA FRANCIS THAT XARELTO WAS HELD FOR THORACENTESIS IN THE AM
[2020-07-03 21:59] VITALS: BP 120/52
[2020-07-04 05:00] VITALS: BP 121/50
[2020-07-04] MEDS: SODIUM CHLOR 0.9% PF (SALINE LOCK) 10ML VIAL/SYR IV SCH ×3 (06:00→22:53)
[2020-07-04] MEDS: PIPERACILLIN-TAZOB 3.375GM 100 ML IV SCH ×3 (06:00→22:54)
[2020-07-04] MEDS: FUROSEMIDE 20 MG/2 ML VIAL IV SCH ×2 (06:00→18:38)
[2020-07-04] MEDS: FLUoxetine HCL 20 MG CAP PO SCH ×4 (06:00→22:55)
--- NOTE | 2020-07-04 06:22 | NUR ---
Respiratory note: PT TAKEN OFF BIPAP AND PLACED ON 2 LPM NC. PT TOLERATING WELL.
[2020-07-04] MEDS: ACCU-CHEK COMFORT CURVE STRIP VI SCH ×4 (06:45→22:00)
[2020-07-04] MEDS: InsuLIN REG 1unit/0.01ml Soln (100units/ml) SC SCH ×4 (06:45→22:34)
--- NOTE | 2020-07-04 07:30 | NUR ---
Opening Shift Note Assumed care of patient, who is alert and oriented x3 (name and ). No S/S of distress/SOB or pain. Bed is low, locked. gas pump attendant at bedside for safety. Instructed on POC and to call for assist PRN, will continue to monitor for changes Q1hr and PRN. Addendum: 07/04/20 at 1038 by Katherine Lackey RN RN Correction: Note time 0730, patient is alert and oriented x2 (name and ).
[2020-07-04 08:31] VITALS: BP 118/53
[2020-07-04] MEDS: Glucerna Carbsteady SHAKE Vanilla 8oz PO SCH ×3 (09:29→18:35)
[2020-07-04] MEDS: CARVEDILOL 12.5 MG TAB PO SCH ×2 (09:29→22:00)
[2020-07-04] MEDS: AZITHROMYCIN 500MG/ 250ML 250 ML IV SCH (09:40)
[2020-07-04] MEDS: FAMOTIDINE 20 MG TAB PO SCH ×2 (09:41→22:55)
[2020-07-04] MEDS: ASCORBIC ACID 500 MG TAB PO SCH ×2 (09:41→22:56)
[2020-07-04] MEDS: ZINC SULFATE 220mg CAP or TAB PO SCH (09:41)
[2020-07-04] MEDS: LOSARTAN POTASSIUM 25 MG TAB PO SCH (09:41)
[2020-07-04] MEDS: ENOXAPARIN SOD 40 MG/0.4 ML SYRINGE SC SCH ×2 (09:41→16:11)
[2020-07-04] MEDS: INSULIN LANTUS (GLARGINE) 1 /0.01ml (100units/ml) SC SCH (11:24)
[2020-07-04 12:39] VITALS: BP 120/59
--- NOTE | 2020-07-04 14:40 | NUR ---
Nutrition Assessment Notes Please see attached link for complete assessment Est energy needs abw 92 [id number] kcal (17-20 kcal/kg ABW), Est protein needs 92-101g (1.0-1.1g/kg ABW) Will reassess prn Addendum: 07/04/20 at [address] Amended: Links added.
--- NOTE | 2020-07-04 14:53 | NUR ---
The patient is a 75 years old female, patient is alert but struggles from confusion. Patient cognitive abilities are not intact, patient rely on assistance for daily ADLs. Patient has prior medical history including dementia, asthma, shortness of breath, diabetes, and hypertension who presented to [facility]. Patient resides at [facility]. Patient stated that she has two children (Ya and Alec). Patient stated her daughter is her support system. Patient stated that she will return to [facility] post discharge. Intervention goals: Post discharge make arrangement for patient to return to [facility]. Addendum: 07/04/20 at 1453 by JAMES CONDE Amended: Links added.
[2020-07-04 16:10] VITALS: BP 115/60
[2020-07-04] MEDS: RIVAROXABAN 20 MG TAB PO SCH (16:12)
--- NOTE | 2020-07-04 16:45 | NUR ---
Held Coreg HR: 59 bpm. Held 1000 Coreg. Manager Supply Chain Chuyita Castillo at nurses station and is aware.
[2020-07-04] MEDS: DONEPEZIL HYDROCHLORIDE 5 MG TAB PO SCH (18:39)
--- NOTE | 2020-07-04 20:00 | NUR ---
Opening Shift Note Assumed care of patient. Awake and alert to person only. Sitter is at bedside. No S/S of distress/SOB or pain. Instructed on POC and to call for assist PRN. Hogan is off the floor, below the bladder, patent and draining clear yellow urine. Bed locked, in lowest position, call light within reach, side rails up x2, safety precautions in place. Will continue to monitor for changes Q1hr and PRN.
[2020-07-04 22:00] VITALS: BP 113/42
[2020-07-04 22:33] VITALS: BP 113/57
--- NOTE | 2020-07-04 22:40 | NUR ---
Coreg held HR 57, BP 104/77. Hospitalist huber. Awaiting call back Addendum: 07/04/20 at 2314 by KILLIAN ALVARADO RN RN MEÑO Castillo aware of decrease in HR and Coreg being held with last dose.
[2020-07-05 05:00] VITALS: BP 142/53
[2020-07-05] MEDS: ACCU-CHEK COMFORT CURVE STRIP VI SCH ×4 (06:42→21:36)
[2020-07-05] MEDS: InsuLIN REG 1unit/0.01ml Soln (100units/ml) SC SCH ×4 (06:42→21:36)
[2020-07-05] MEDS: SODIUM CHLOR 0.9% PF (SALINE LOCK) 10ML VIAL/SYR IV SCH ×3 (06:47→21:42)
[2020-07-05] MEDS: FUROSEMIDE 20 MG/2 ML VIAL IV SCH ×2 (06:47→17:35)
[2020-07-05] MEDS: PIPERACILLIN-TAZOB 3.375GM 100 ML IV SCH ×3 (06:48→21:42)
[2020-07-05] MEDS: FLUoxetine HCL 20 MG CAP PO SCH ×4 (06:48→21:43)
--- NOTE | 2020-07-05 07:20 | NUR ---
Opening Shift Note Assumed care of patient, alert and oriented to self only. No S/S of distress/SOB or pain. Hogan catheter system is intact, and hanging below bladder. System is free of kinks and draining to gravity. flight attendant ramp at bedside. Bed is low, locked with 2x side rails up. Call light is within reach. Instructed on POC and to call for assist PRN, will continue to monitor for changes Q1hr and PRN.
--- NOTE | 2020-07-05 08:18 | NUR ---
NPO Spoke to Xochitl from Radiology. This nurse to keep patient NPO for possible chest tube insertion. Will notify ANALYTICAL RESEARCH PROGRAM MANAGER.
[2020-07-05] MEDS: CARVEDILOL 12.5 MG TAB PO SCH ×2 (08:24→21:42)
[2020-07-05] MEDS: FAMOTIDINE 20 MG TAB PO SCH ×2 (08:24→21:42)
[2020-07-05] MEDS: ZINC SULFATE 220mg CAP or TAB PO SCH (08:24)
[2020-07-05] MEDS: ASCORBIC ACID 500 MG TAB PO SCH ×2 (08:24→21:43)
[2020-07-05] MEDS: Glucerna Carbsteady SHAKE Vanilla 8oz PO SCH ×3 (08:24→18:01)
[2020-07-05] MEDS: LOSARTAN POTASSIUM 25 MG TAB PO SCH (08:24)
--- NOTE | 2020-07-05 08:33 | NUR ---
Holding medications MEÑO Castillo aware this nurse is holding morning medications due to possible chest tube insertion.
[2020-07-05 09:00] VITALS: BP 129/62
--- NOTE | 2020-07-05 09:15 | NUR ---
Midline Placement: Patient educated on need for midline placement. All risks and benefits explained and all questions and concerns addresses prior to procedure. 18 g/10 cm midline inserted via LEFT BASILIC vein using Ultrasound. Sterile technique utilized. Blood return obtained from THE SINGLE lumen and flushed easily with NS using proper technique. Midline secured with saline lock; biodisc and occlusive dressing applied. Primary RN SCOTT notified. Midline lot # [id number]
--- NOTE | 2020-07-05 10:53 | NUR ---
ABG CRITICAL RESULTS REPORTED TO FRANCISCA NUÑEZ NP. PER FRANCISCA NUÑEZ STULL INSTALLER, PT IS OKAY OFF BIPAP AT THIS TIME. BIPAP ORDERED PRN. PT ON 2L NC WITH SPO2 94% NO DISTRESS NOTED. SITTER AT BEDSIDE. WILL CONTINUE TO MONITOR PT.
[2020-07-05] MEDS: AZITHROMYCIN 500MG/ 250ML 250 ML IV SCH (11:21)
[2020-07-05] MEDS: INSULIN LANTUS (GLARGINE) 1 /0.01ml (100units/ml) SC SCH (12:29)
[2020-07-05] MEDS ORDERED: MIDAZOLAM HCL 1MG/1ML-2 ML VIAL ONE (12:32)
[2020-07-05] MEDS ORDERED: fentaNYL CITRATE 100 MCG/2 ML VL ONE (12:32)
--- NOTE | 2020-07-05 12:42 | NUR ---
Radiology at bedside Patient going to Radiology dept via bed for CT guided thoracentesis with Dr. Wiggins. No distress noted upon departure.
[2020-07-05 13:00] VITALS: BP 124/62
[2020-07-05] MEDS ORDERED: LIDOCAINE 2%HCL (LOCAL ANESTH.) INJ 20ML MDV ONE (13:17)
--- NOTE | 2020-07-05 13:26 | NUR ---
PATIENT ARRIVED TO CT VIA BED CONNECTED TO PORTABLE OXYGEN AND TELEMETRY BOX. PATIENT PLACED ON PORTABLE MONITOR. VITAL SIGNS 1330 HR80 BP136/76 RR29 SATURATIONS 95% ON [address] HARDY AT BEDSIDE TO PERFORM PROCEDURE. REVIEWED PROCEDURE WITH PATIENT AND WHAT TO EXPECT PATIENT IS ALERT AND ORIENTED X2 CONSENTS SIGNED BY DAUGHTER. 1345 BP 149/59 HR85 RR26 SAT 94% ON 2 LITERS NASAL CANULA. NO COMPLAINTS OF PAIN AT THIS TIME. MD PLACED NEEDLE AND CONNECTED TO SUCTION CANISTER. DRAINED A TOTAL OF APPROXIMATELY 350ML OF SEROUS SANGUINOUS FLUID. WILL SEND FOR CULTURES PER MD ORDER. 1350 PROCEDURE COMPLETED PATIENT TOLERATED WELL NO COMPLAINTS OF PAIN. BP138/64 RR25 HR86 SAT98% 2 LITERS NASAL CANULA. PATIENT PLACED ON BED AND TAKEN BACK TO ROOM.
--- NOTE | 2020-07-05 13:41 | NUR ---
Attempted PT treatment, pt is down in radiology.
--- NOTE | 2020-07-05 14:10 | NUR ---
PATIENT BROUGHT BACK TO ROOM VIA BED CONNECTED TO TELEMETRY BOX AND PORTABLE OXYGEN. PATIENT IS ALERT AND ORIENTED X2 WAS PRIOR TO PROCEDURE. SITTER AT BEDSIDE UPON ARRIVAL TO ROOM, INFORMED PRIMARY NURSE OF PATIENT ARRIVAL. CONNECTED PATIENT TO BEDSIDE OXYGEN AND MONITOR. SATURATIONS 97% ON 2 LITERS, NO SIGNS OF ACUTE DISTRESS NOTED.
[2020-07-05 17:00] VITALS: BP 103/57
[2020-07-05] MEDS: RIVAROXABAN 20 MG TAB PO SCH (17:05)
[2020-07-05] MEDS: DONEPEZIL HYDROCHLORIDE 5 MG TAB PO SCH (17:35)
[2020-07-05 18:59] LABS: Albumin 2.4 g/dL (3.4-5.0); Calcium 8.9 mg/dL (8.5-10.1); Potassium 3.5 mmol/L (3.5-5.1)
[2020-07-05 19:02] LABS: BUN/Creatinine Ratio 51.1; Bilirubin, Total 0.5 mg/dL (0.2-1.0); Total Protein 5.9 g/dL (6.4-8.2)
--- NOTE | 2020-07-05 19:28 | NUR ---
PT ASSESSED AT THIS TIME. SPO2 98% ON 2L NC, HR 71, RR 20. BIPAP AT BEDSIDE. NO SHORTNESS OF BREATH. PT RESTING COMFORTABLY. SITTER AT BEDSIDE.
--- NOTE | 2020-07-05 19:33 | NUR ---
Critical Lab CO2 66. MD Quinones notified at this time. Awaiting answer back
--- NOTE | 2020-07-05 20:50 | NUR ---
Call back from MD Quinones No new orders received
[2020-07-05 22:00] VITALS: BP_SYST 103; BP_SYST 144; BP_DIAS 57; BP_DIAS 58
[2020-07-06 05:13] VITALS: BP 147/54
[2020-07-06] MEDS: SODIUM CHLOR 0.9% PF (SALINE LOCK) 10ML VIAL/SYR IV SCH ×3 (06:30→23:08)
[2020-07-06] MEDS: FUROSEMIDE 20 MG/2 ML VIAL IV SCH ×2 (06:30→17:20)
[2020-07-06] MEDS: ACCU-CHEK COMFORT CURVE STRIP VI SCH ×4 (06:31→23:15)
[2020-07-06] MEDS: PIPERACILLIN-TAZOB 3.375GM 100 ML IV SCH ×3 (06:31→23:08)
[2020-07-06] MEDS: FLUoxetine HCL 20 MG CAP PO SCH ×4 (06:31→23:12)
[2020-07-06] MEDS: InsuLIN REG 1unit/0.01ml Soln (100units/ml) SC SCH ×4 (06:31→22:00)
--- NOTE | 2020-07-06 07:21 | NUR ---
Respiratory note: PT SEEN AND ASSESSED AT THIS TIME. RECEIVED PT FROM [facility] RT, PT ALREADY OFF BIPAP. HR 75, RR 20, SPO2 96% ON 2LPM NASAL CANNULA. BREATH SOUNDS CLEAR/DIM T/O. PT SLEEPING COMFORTABLY IN BED, NO S/S OF DISTRESS. SITTER AT BEDSIDE. PT AND SITTER AWARE TO CALL FOR RT IF NEEDED.
--- NOTE | 2020-07-06 07:30 | NUR ---
Opening Shift Note Assumed care of patient, alert and oriented to self only. No S/S of distress/SOB or pain. Hogan catheter system is intact, and hanging below bladder. System is free of kinks and draining free to gravity. attendant [facility] at bedside. Bed is low, locked with 2x side rails up. Call light is within reach. Instructed on POC and to call for assist PRN, will continue to monitor for changes Q1hr and PRN.
[2020-07-06 07:48] VITALS: BP 131/67
[2020-07-06] MEDS: AZITHROMYCIN 500MG/ 250ML 250 ML IV SCH (09:47)
[2020-07-06] MEDS: CARVEDILOL 12.5 MG TAB PO SCH ×2 (09:48→23:11)
[2020-07-06] MEDS: FAMOTIDINE 20 MG TAB PO SCH ×2 (09:48→23:13)
[2020-07-06] MEDS: Glucerna Carbsteady SHAKE Vanilla 8oz PO SCH ×3 (09:49→18:58)
[2020-07-06] MEDS: ENOXAPARIN SOD 40 MG/0.4 ML SYRINGE SC SCH (09:49)
[2020-07-06] MEDS: ZINC SULFATE 220mg CAP or TAB PO SCH (09:49)
[2020-07-06] MEDS: LOSARTAN POTASSIUM 25 MG TAB PO SCH (09:49)
[2020-07-06] MEDS: ASCORBIC ACID 500 MG TAB PO SCH ×2 (09:54→23:13)
[2020-07-06] MEDS: INSULIN LANTUS (GLARGINE) 1 /0.01ml (100units/ml) SC SCH (11:22)
[2020-07-06] MEDS: acetaZOLAMIDE SODIUM 500 MG VL IV SCH (11:47)
[2020-07-06] MEDS: MORPHINE SULFATE 4 MG/ML SYR/VIAL IV PRN (13:44)
--- NOTE | 2020-07-06 16:18 | NUR ---
re-assessment Per consult pulmonary is recommending hospice. Per patients daughter Ya when offered a list of hospice providers. Ya asked for the preferred hospice of [facility] where patient resides. Per Dee Dee at [facility] they use [facility] for many of there patients. MD order has been sent to [facility]. Waiting on consents to be signed and discharge now. [facility]ell Pandya can come up and see patient tonight. Ya has been notified. Addendum: 07/06/20 at 1621 by Deanne HOLLIDAY Amended: Links added.
[2020-07-06 17:13] VITALS: BP 101/48
[2020-07-06] MEDS: DONEPEZIL HYDROCHLORIDE 5 MG TAB PO SCH (17:20)
[2020-07-06] MEDS: RIVAROXABAN 20 MG TAB PO SCH (17:20)
--- NOTE | 2020-07-06 19:25 | NUR ---
Dr Burns at [facility]. Addendum: 07/07/20 at 0234 by DEISY ARMENDARIZ RN CORRECTION: THOMAS MCKEON
--- NOTE | 2020-07-06 19:30 | NUR ---
Pt janusz molina. Addendum: 07/07/20 at 0234 by DEISY ARMENDARIZ RN CORRECTION: THOMAS PT
--- NOTE | 2020-07-06 19:55 | NUR ---
OPENING SHIFT NOTE Pt is resting in bed with eyes closed and resp rate is even and unlabored. No s/s of any distress noted at this time. Pt has been noted to be very lethargic. Family at bedside; daughter , and she states the same. Pt will open eyes to calling her name but just says, "Hi." Pt unable to state her name at this time. Bed is low, wheels are locked, and call light is with in reach. Sitter is at bedside and bed alarm is set for pt safety.
--- NOTE | 2020-07-06 20:30 | NUR ---
Pt came back into hospital from outside with Jania Guzmán. Addendum: 07/07/20 at 0233 by DEISY ARMENDARIZ RN CORRECTION: CHARTED ON WRONG PATIENT
[2020-07-06 21:30] VITALS: BP 107/58
[2020-07-06] MEDS: MUPIROCIN 2% OINT 15gm or 22gm TOP SCH (23:13)
--- NOTE | 2020-07-07 02:38 | NUR ---
TELE MONITOR CALLED TO REPORT BRADYCARDIA HR IN THE 40'S TO 50'S. PT IS RESTING WITH EYES CLOSED AND IS ON BIPAP. NO S/S OF ANY DISTRESS NOTED AT THIS TIME.
[2020-07-07 05:00] VITALS: BP 106/57
--- NOTE | 2020-07-07 06:00 | NUR ---
Respiratory note: PT FOUND OFF BIPAP, MASK REMOVED BY RN. PT FOUND ON 3L O2 VIA NC AND TITRATED TO 2L BY RT. PT SATTING 98%, RESPIRATORY RATE 18, HEART RATE 53. TOLERATING WELL. MIRROR FINISHING MACHINE OPERATOR AT BEDSIDE.
[2020-07-07] MEDS: SODIUM CHLOR 0.9% PF (SALINE LOCK) 10ML VIAL/SYR IV SCH ×3 (06:25→22:45)
[2020-07-07] MEDS: FUROSEMIDE 20 MG/2 ML VIAL IV SCH ×2 (06:25→17:28)
[2020-07-07] MEDS: PIPERACILLIN-TAZOB 3.375GM 100 ML IV SCH ×3 (06:26→22:46)
[2020-07-07] MEDS: FLUoxetine HCL 20 MG CAP PO SCH ×4 (06:26→22:49)
[2020-07-07] MEDS: InsuLIN REG 1unit/0.01ml Soln (100units/ml) SC SCH ×4 (06:27→22:54)
[2020-07-07] MEDS: ACCU-CHEK COMFORT CURVE STRIP VI SCH ×4 (06:27→23:01)
--- NOTE | 2020-07-07 06:38 | NUR ---
PT TRANSFERRED TO ROOM 219-B AND SITTER HAS BEEN DC'D BY NUT SORTER LAUREN.
--- NOTE | 2020-07-07 06:55 | NUR ---
Respiratory note: PT BIPAP #[id number] MOVED INTO NEW ROOM 219-B BY RT. PLUGGED INTO RED OUTLET AND OXYGEN SOURCE. AMBU-BAG AT BEDSIDE
[2020-07-07] MEDS: Glucerna Carbsteady SHAKE Vanilla 8oz PO SCH ×3 (08:00→17:29)
--- NOTE | 2020-07-07 08:00 | NUR ---
OPENING SHIFT NOTE ASSUMED CARE OF PATIENT AWAKE AND ALERT TO SELF. NO S/S OF DISTRESS NOTED OR COMPLAINTS OF PAIN. PATIENT UPDATED ON POC FOR THE DAY AND ALL QUESTIONS ANSWERED. BED IS IN LOWEST, LOCKED POSITION WITH SIDE RAILS UP X3, CALL LIGHT WITHIN REACH AND BED ALARM ON FOR SAFETY. WILL CONTINUE TO MONITOR Q1H AND PRN.
[2020-07-07 09:10] LABS: Basophils # (auto) 0 10 ^3/uL (0-0.2); Basophils % (auto) 0.5 % (0.0-2.0); Eosinophils # (auto) 0.2 10 ^3/uL (0-0.8); Eosinophils % (auto) 2.9 % (0.0-7.0); Hematocrit 38.7 % (36.0-46.0); Hemoglobin 12.2 g/dL (12.2-16.2); Lymphocytes # (auto) 1.1 10 ^3/uL (0.4-5.4); Lymphocytes % (auto) 16.2 % (10.0-50.0); Mean Corpuscular Hemoglobin 28.8 pg (28.0-32.0); Mean Corpuscular Hgb Conc. 31.6 g/dL (32.0-36.0); Mean Corpuscular Volume 91.2 fL (80.0-100.0); Monocytes # (auto) 0.6 10 ^3/uL (0-1.3); Neutrophils % (auto) 71.4 % (37.0-80.0); Nucleated Red Blood Cells % 0.1 %; Platelet Count (auto) 121 10^3/uL (140-450); Red Blood Cells 4.24 10^6/uL (4.0-5.20)
[2020-07-07 09:11] VITALS: BP 105/58
[2020-07-07 09:25] LABS: BUN/Creatinine Ratio 30.4; Calcium 9.1 mg/dL (8.5-10.1); Potassium 3.2 mmol/L (3.5-5.1)
[2020-07-07] MEDS: FAMOTIDINE 20 MG TAB PO SCH ×2 (09:48→22:49)
[2020-07-07] MEDS: AZITHROMYCIN 500MG/ 250ML 250 ML IV SCH (09:48)
[2020-07-07] MEDS: ASCORBIC ACID 500 MG TAB PO SCH ×2 (09:48→22:50)
[2020-07-07] MEDS: ZINC SULFATE 220mg CAP or TAB PO SCH (09:48)
[2020-07-07] MEDS: acetaZOLAMIDE SODIUM 500 MG VL IV SCH (09:48)
[2020-07-07] MEDS: ENOXAPARIN SOD 40 MG/0.4 ML SYRINGE SC SCH (09:49)
[2020-07-07] MEDS: MUPIROCIN 2% OINT 15gm or 22gm TOP SCH ×2 (09:50→23:01)
[2020-07-07] MEDS: LOSARTAN POTASSIUM 25 MG TAB PO SCH (09:50)
[2020-07-07] MEDS: CARVEDILOL 12.5 MG TAB PO SCH ×2 (09:50→22:49)
[2020-07-07] MEDS: INSULIN LANTUS (GLARGINE) 1 /0.01ml (100units/ml) SC SCH (09:53)
--- NOTE | 2020-07-07 11:42 | NUR ---
Nutrition Followup Notes Wt: 123.9 kg Pt was awaken did not seem to be very oriented with no family by bedside. pt with acute on chronic CHF. pt is currently on CCHO 45 gm dit with Glucerna 1 carton tid inadequate Po of < 50% x 6 per RN doc Est energy needs abw 92 [id number] kcal (17-20 kcal/kg ABW), Est protein needs 92-101g (1.0-1.1g/kg ABW) Will reassess prn LABS: CO 2 66 H ALB 2.4 L BUN 24 H, A1C 6.9 H GI: Pt had 1 BM today per RN doc. BS: 13 mod risk. Refer to wound assessment report for full details. PES: Altered nutrition related lab values r.t current chronic medical condition aeb hypercapnia mod hypoalb Decreased nutrient needs r/t adiposity aeb pt`s high BMI of 44.7 kgm2 Comments: Will continue to monitor PO status, skin status, pertinent labs and weight trends. Will f/u in 3-5 days Rec: 1) refer to CDE dietitian on DC. 2) continue current plan of care
--- NOTE | 2020-07-07 12:24 | NUR ---
WOUND CARE NOTE: Wound care in to see patient per wound care request regarding "open wound on sacrum" that are noted by bedside nurse upon assessment. Patient is 75 years old female with admitting diagnosis of Congestive Heart Failure. Patient is resting in bed in Rm. 219B. Patient open her eyes on verbal and tactile stimuli. She's in no stated pain at this time and she appears to be in no pain using Nieves Huynh Faces Pain Scale. She's max assist in turning and repositioning and Nazario score is 13. Skin/wound assessment done with the assistance of nurse's aideLuba. Patient's Rt medial sacrum noted with 1.5x1.5cm open partial thickness wound with dark red non-blanchable surrounding skin, no drainage or odor noted. Patient's sacral wound consistent with Stage 2 pressure injury. Patient soiled the care pad with minimal amount of pasty stool. Rhoda care given, linen changed, applied Z Guard cream and covered wound with Opti foam gentle dressing. Photograph of wound are taken for reference. Repositioned patient for comfort facing her Lt side, redistributed pressure points with pillows and elevated BLE on pillows. Patient tolerated well. Patient has social service consult for Hospice eval. RECOMMENDATION: Nursing to continue with BID/PRN dressing change to Rt sacral wound per MD order,Dietary consult, frequent turning and repositioning schedule as condition permits, redistribute pressure points with pillows, frequent rhoda care/check, keep clean and dry,continue monitoring by wound care while patient is hospitalized. Addendum: 07/07/20 at 1557 by Chaparrita Cai RN Amended: Links added.
[2020-07-07 13:00] VITALS: BP 117/42
[2020-07-07 17:00] VITALS: BP 110/59
[2020-07-07] MEDS: DONEPEZIL HYDROCHLORIDE 5 MG TAB PO SCH (17:28)
[2020-07-07] MEDS: RIVAROXABAN 20 MG TAB PO SCH (17:29)
[2020-07-07 22:00] VITALS: BP 107/53
--- NOTE | 2020-07-07 23:10 | NUR ---
PLACED PT ON BIPAP. BIPAP CONNECTED TO RED OUTLET AND O2 WALL SOURCE. ALARMS ARE SET AND AUDIBLE. CONTINUOS POX AT BEDSIDE PER PROTOCOL. PT ON SIZE (S) MASK. NO FACIAL BREAKDOWN OR REDNESS NOTED PRIOR TO MASK PLACEMENT. [id number] BARRIER PLACED. BS ARE DIMINISHED T/O. ANGIE OLIVAS COMMUNICATED ON PLACEMENT AND SETTINGS. WILL CONTINUE TO MONITOR PT Q2H AND NEEDED.
[2020-07-08] VITALS (7 sets, daily range): BP systolic 92–136; BP diastolic 40–68
[2020-07-08] MEDS: FUROSEMIDE 20 MG/2 ML VIAL IV SCH ×2 (06:24→17:26)
[2020-07-08] MEDS: SODIUM CHLOR 0.9% PF (SALINE LOCK) 10ML VIAL/SYR IV SCH ×3 (06:25→22:18)
[2020-07-08] MEDS: FLUoxetine HCL 20 MG CAP PO SCH ×4 (06:25→22:00)
[2020-07-08] MEDS: PIPERACILLIN-TAZOB 3.375GM 100 ML IV SCH ×3 (06:25→22:18)
[2020-07-08] MEDS: ACCU-CHEK COMFORT CURVE STRIP VI SCH ×4 (06:26→22:18)
[2020-07-08] MEDS: InsuLIN REG 1unit/0.01ml Soln (100units/ml) SC SCH ×4 (06:27→22:19)
--- NOTE | 2020-07-08 07:25 | NUR ---
Respiratory note: PT REMOVED FROM BIPAP AND PLACED ON 2L NC. PT TOLERATED WELL. SITTER AT BEDSIDE. NO RESPIRATORY DISTRESS NOTED.
[2020-07-08] MEDS: Glucerna Carbsteady SHAKE Vanilla 8oz PO SCH ×3 (08:00→17:26)
[2020-07-08 09:10] LABS: Potassium 3.3 mmol/L (3.5-5.1)
[2020-07-08 09:15] LABS: BUN/Creatinine Ratio 42.1
[2020-07-08] MEDS: LOSARTAN POTASSIUM 25 MG TAB PO SCH (10:00)
[2020-07-08] MEDS: CARVEDILOL 12.5 MG TAB PO SCH ×2 (10:00→22:00)
[2020-07-08] MEDS: acetaZOLAMIDE SODIUM 500 MG VL IV SCH (10:14)
[2020-07-08] MEDS: AZITHROMYCIN 500MG/ 250ML 250 ML IV SCH (10:14)
[2020-07-08] MEDS: ZINC SULFATE 220mg CAP or TAB PO SCH (10:14)
[2020-07-08] MEDS: FAMOTIDINE 20 MG TAB PO SCH ×2 (10:15→22:00)
[2020-07-08] MEDS: ASCORBIC ACID 500 MG TAB PO SCH ×2 (10:15→22:00)
[2020-07-08] MEDS: MUPIROCIN 2% OINT 15gm or 22gm TOP SCH ×2 (10:15→22:18)
[2020-07-08] MEDS: ENOXAPARIN SOD 40 MG/0.4 ML SYRINGE SC SCH (10:15)
[2020-07-08] MEDS: INSULIN LANTUS (GLARGINE) 1 /0.01ml (100units/ml) SC SCH (10:16)
[2020-07-08] MEDS ORDERED: POTASSIUM CHLORIDE 40 MEQ, LIDOCAINE 1% (LOCAL ANESTH.) 4 ML in SODIUM CHL 0.9% 250 ML IV ONE (12:00)
[2020-07-08] MEDS: DONEPEZIL HYDROCHLORIDE 5 MG TAB PO SCH (17:26)
[2020-07-08] MEDS: RIVAROXABAN 20 MG TAB PO SCH (17:27)
--- NOTE | 2020-07-08 19:30 | NUR ---
Opening Shift Note Assumed care of patient, asleep and difficult to arouse. No S/S of distress/SOB or pain. Oxygen saturation 100 percent on 2L O2. will continue to monitor for changes Q1hr and PRN.
--- NOTE | 2020-07-08 22:00 | NUR ---
ORAL MEDICATIONS HELD DUE TO PATIENT'S ALERTNESS LEVEL. PATIENT IS AN ASPIRATION HAZARD BECAUSE SHE IS NOT WAKING UP ENOUGH TO SAFELY SWALLOW ORAL MEDICATIONS.
--- NOTE | 2020-07-09 00:46 | NUR ---
Respiratory note: PT SEEN AND ASSESSED FOR BIPAP PLACEMENT AT 0046. PT REQUESTED NOT TO GO ON FOR THE NIGHT. NO DISTRESS NOTED SHE WAS SLEEPING WHEN ENTERING THE ROOM. HR 68 RR 18 SP02 100% ON 2L NASAL CANNULA. PT AWARE TO CALL FOR RT IF SHE WISHES TO GO ON BIPAP.
[2020-07-09 05:00] VITALS: BP 137/56
[2020-07-09] MEDS: FLUoxetine HCL 20 MG CAP PO SCH ×2 (06:29→12:00)
[2020-07-09] MEDS: FUROSEMIDE 20 MG/2 ML VIAL IV SCH (06:29)
[2020-07-09] MEDS: SODIUM CHLOR 0.9% PF (SALINE LOCK) 10ML VIAL/SYR IV SCH ×2 (06:29→16:06)
[2020-07-09] MEDS: PIPERACILLIN-TAZOB 3.375GM 100 ML IV SCH (06:29)
[2020-07-09] MEDS: ACCU-CHEK COMFORT CURVE STRIP VI SCH ×2 (06:29→11:30)
[2020-07-09] MEDS: InsuLIN REG 1unit/0.01ml Soln (100units/ml) SC SCH ×3 (06:30→16:15)
--- NOTE | 2020-07-09 06:30 | NUR ---
Respiratory note: PT FOUND OFF BIPAP SUPPORT AND ON 3L N/C SPO2 100, RR 18, HR 88. NO RESP DISTRESS OBSERVED. PT AWARE TO HAVE RT PAGED IF NEEDED. BIPAP REMAINS AT BEDSIDE.
--- NOTE | 2020-07-09 07:10 | NUR ---
Opening Shift Note Assumed care of patient, awake A/O X 2. No S/S of distress/SOB or pain. Patient presents as limited in mobility and ability to verbalize questions or concerns. Patient on continuous pulse O2 readings at 95% on 2L NC. There is bruising noted on both forearms and midline is in tact and was flushed. Skin is pale and lower extremities are cold with weak palpable pulses. Instructed on POC and to call for assist PRN. Bed is in lowest position and all 4 side rails are up. Awaiting placement at [facility]. Will continue to monitor for changes Q1hr and PRN.
[2020-07-09 08:00] VITALS: BP 137/56
[2020-07-09 09:00] VITALS: BP 125/56
[2020-07-09] MEDS: INSULIN LANTUS (GLARGINE) 1 /0.01ml (100units/ml) SC SCH (10:00)
[2020-07-09] MEDS: ENOXAPARIN SOD 40 MG/0.4 ML SYRINGE SC SCH (10:00)
--- NOTE | 2020-07-09 10:00 | NUR ---
Lovenox held Lovenox held due to low platelet count 121. Chuyita WILDER called and made aware.
[2020-07-09] MEDS: CARVEDILOL 12.5 MG TAB PO SCH (10:53)
[2020-07-09] MEDS: ZINC SULFATE 220mg CAP or TAB PO SCH (10:54)
[2020-07-09] MEDS: LOSARTAN POTASSIUM 25 MG TAB PO SCH (10:54)
[2020-07-09] MEDS: AZITHROMYCIN 500MG/ 250ML 250 ML IV SCH ×2 (10:54→16:10)
[2020-07-09] MEDS: FAMOTIDINE 20 MG TAB PO SCH (10:55)
[2020-07-09] MEDS: Glucerna Carbsteady SHAKE Vanilla 8oz PO SCH ×2 (11:04→12:00)
[2020-07-09] MEDS: MUPIROCIN 2% OINT 15gm or 22gm TOP SCH (11:10)
[2020-07-09] MEDS: acetaZOLAMIDE SODIUM 500 MG VL IV SCH (11:10)
--- NOTE | 2020-07-09 11:29 | NUR ---
Hospice called [facility] called to arrange transportation. Spoke with Tiffanie. She was notified that there was no order and would call the doctor and request one. Dr. Quinones's office called at this time and spoke with Chuyita. She informed me she would be in to sign paperwork for the transfer. Will update hospice facility.
--- NOTE | 2020-07-09 12:30 | NUR ---
Chuyita WILDER rounding Chuyita at the nurses station signing transfer paperwork. Instructed to carry out all medication administration until pickup.
[2020-07-09 13:00] VITALS: BP 136/62
--- NOTE | 2020-07-09 13:04 | NUR ---
Telephone consent Obtained consent via telephone from daughter concerning transfer back to [facility].
--- NOTE | 2020-07-09 15:55 | NUR ---
re-assessment Patient is now discharged. Consents have been signed. Patient will be returning to [facility] long term acute care registered nurse to room 23a. Safety care transport will transport patient between 530pm and 6pm. Cee ADAMS has been given the phone number for report [phone]. Ya delatorre daughter has been notified and agrees to discharge plan back to [facility] on hospice. Addendum: 07/09/20 at 1559 by Deanne HOLLIDAY Amended: Links added.
[2020-07-09] MEDS: ASCORBIC ACID 500 MG TAB PO SCH (16:05)
--- NOTE | 2020-07-09 16:44 | NUR ---
Report called in to [facility] Report given to Luly at [facility]. Awaiting transportation. ETA 5:30-6:00 pm.
[2020-07-09 17:00] VITALS: BP 125/40
[2020-07-09] MEDS: MORPHINE SULFATE 4 MG/ML SYR/VIAL IV PRN (17:56)
--- NOTE | 2020-07-09 18:26 | NUR ---
TRANSPORTED OFF THE UNIT Patient transported off the unit by [facility], spoke with Steve. Patient was transferred from bed to [facility] with no S/S of respiratory distress or signs of pain. Skin care was given to the patient. No personal belongings noted or logged at admission. Patient taken to [facility]. Discharge instructions given as ordered. Medication reconciliation form completed and copy given to patient. IV removed with catheter intact, pressure dressing applied, nielsen catheter remained in place. Telemetry unit returned to ICU.
== END 2020-07-09 18:25 | disposition hospice, inpatient (51) | DRG 291 ==
LOC: EDBD 20:24 → ER 20:34 → TELE 20:35 → TELE-WESTW 07-01 14:51 → TELE-CENTR 07-01 17:38
PROVIDERS: ADMIT Nurse Practitioner Family; ATTEND Internal Medicine
PROC: 5A09357 Assistance with Respiratory Ventilation, Less than 24 Consecutive Hours, Continuous Positive Airway Pressure (ICD-10-PCS; 2020-07-01)
PROC: 5A09357 Assistance with Respiratory Ventilation, Less than 24 Consecutive Hours, Continuous Positive Airway Pressure (ICD-10-PCS; 2020-07-02)
PROC: 5A09357 Assistance with Respiratory Ventilation, Less than 24 Consecutive Hours, Continuous Positive Airway Pressure (ICD-10-PCS; 2020-07-03)
PROC: 5A09357 Assistance with Respiratory Ventilation, Less than 24 Consecutive Hours, Continuous Positive Airway Pressure (ICD-10-PCS; 2020-07-03)
PROC: 5A09357 Assistance with Respiratory Ventilation, Less than 24 Consecutive Hours, Continuous Positive Airway Pressure (ICD-10-PCS; 2020-07-04)
PROC: 5A09357 Assistance with Respiratory Ventilation, Less than 24 Consecutive Hours, Continuous Positive Airway Pressure (ICD-10-PCS; 2020-07-04)
PROC: 0W9B3ZZ Drainage of Left Pleural Cavity, Percutaneous Approach (ICD-10-PCS; principal; 2020-07-05)
PROC: 5A09357 Assistance with Respiratory Ventilation, Less than 24 Consecutive Hours, Continuous Positive Airway Pressure (ICD-10-PCS; 2020-07-05)
PROC: 5A09357 Assistance with Respiratory Ventilation, Less than 24 Consecutive Hours, Continuous Positive Airway Pressure (ICD-10-PCS; 2020-07-06)
PROC: 5A09357 Assistance with Respiratory Ventilation, Less than 24 Consecutive Hours, Continuous Positive Airway Pressure (ICD-10-PCS; 2020-07-07)
DX: I13.0 Hypertensive heart and chronic kidney disease with heart failure and stage 1 through stage 4 chronic kidney disease, or unspecified chronic kidney disease (principal); J96.22 Acute and chronic respiratory failure with hypercapnia; J96.21 Acute and chronic respiratory failure with hypoxia; I50.23 Acute on chronic systolic (congestive) heart failure; I48.20 Chronic atrial fibrillation, unspecified; J98.11 Atelectasis; D68.69 Other thrombophilia; E44.0 Moderate protein-calorie malnutrition; G93.1 Anoxic brain damage, not elsewhere classified; E66.2 Morbid (severe) obesity with alveolar hypoventilation; E87.4 Mixed disorder of acid-base balance; Z68.41 Body mass index [BMI] 40.0-44.9, adult; I48.92 Unspecified atrial flutter; J91.8 Pleural effusion in other conditions classified elsewhere; Z20.828 Contact with and (suspected) exposure to other viral communicable diseases; E78.5 Hyperlipidemia, unspecified; F41.9 Anxiety disorder, unspecified; N18.30 Chronic kidney disease, stage 3 unspecified; F32.9 Major depressive disorder, single episode, unspecified; Z66 Do not resuscitate; E11.65 Type 2 diabetes mellitus with hyperglycemia; J45.909 Unspecified asthma, uncomplicated; F03.90 Unspecified dementia, unspecified severity, without behavioral disturbance, psychotic disturbance, mood disturbance, and anxiety; E11.22 Type 2 diabetes mellitus with diabetic chronic kidney disease; M10.9 Gout, unspecified; Z88.0 Allergy status to penicillin; Z79.01 Long term (current) use of anticoagulants; Z86.73 Personal history of transient ischemic attack (TIA), and cerebral infarction without residual deficits; Z90.710 Acquired absence of both cervix and uterus; Z83.3 Family history of diabetes mellitus; Z82.49 Family history of ischemic heart disease and other diseases of the circulatory system; Z80.0 Family history of malignant neoplasm of digestive organs; Z80.1 Family history of malignant neoplasm of trachea, bronchus and lung; Z79.899 Other long term (current) drug therapy
CPT/HCPCS: 10022; 32555; 36415; 36600; 71045; 71250; 80048; 80053; 81001; 82805; 82962; 83036; 83605; 83735; 83880; 83986; 84443; 84484; 85025; 85610; 85730; 87040; 87070; 87081; 87205; 87426; 89051; 93005; 93306; 94660; 97110; 97163; G0378; J1815; J2001; J2250; J2543

== ENCOUNTER 2020-07-20 22:43 | Inpatient (IN) | payer MEDICARE, MEDICAID ==
[~2020-07-20] VITALS: Ht 172.7 cm; Wt 148.8 kg
[2020-07-21 00:56] LABS: Basophils # (auto) 0 10 ^3/uL (0-0.2); Eosinophils # (auto) 0.2 10 ^3/uL (0-0.8); Monocytes # (auto) 0.5 10 ^3/uL (0-1.3); Neutrophils # (auto) 3.1 10 ^3/uL (1.6-8.6); Neutrophils % (auto) 61.4 % (37.0-80.0); Nucleated Red Blood Cells % 0.3 %
[2020-07-21 00:57] LABS: Basophils % (auto) 0.1 % (0.0-2.0); Hematocrit 38.8 % (36.0-46.0); Lymphocytes # (auto) 1.3 10 ^3/uL (0.4-5.4); Lymphocytes % (auto) 25.3 % (10.0-50.0); Mean Corpuscular Hemoglobin 28.8 pg (28.0-32.0); Mean Corpuscular Volume 93.1 fL (80.0-100.0); Monocytes % (auto) 9.2 % (0.0-12.0); Platelet Count (auto) 83 10^3/uL (140-450); Red Blood Cells 4.17 10^6/uL (4.0-5.20); Red Cell Distribution Width 15.7 % (11.8-14.3)
[2020-07-21 01:15] LABS: Albumin 2.2 g/dL (3.4-5.0); BUN/Creatinine Ratio 42.3; Calcium 8.7 mg/dL (8.5-10.1); Potassium 3.5 mmol/L (3.5-5.1)
[2020-07-21 01:19] LABS: Urine Bacteria MOD /hpf (None Seen); Urine Blood Negative /uL (Negative); Urine Mucus FEW (None Seen); Urine Specific Gravity 1.027 (1.001-1.035); Urine WBC 426 /hpf (0 - 5); Urine WBC Clumps PRESENT /hpf (None Seen)
[2020-07-21 01:20] LABS: Bilirubin, Total 0.5 mg/dL (0.2-1.0); Total Protein 5.9 g/dL (6.4-8.2)
[2020-07-21] MEDS ORDERED: cefTRIAXone 1GM/50ML D5W 50 ML IV ONE (01:45)
[2020-07-21] MEDS ORDERED: MORPHINE SULF INJ 2 MG/ML SYRINGE 1ML IV PRN ×2 (03:30→08:30)
[2020-07-21] MEDS ORDERED: MORPHINE SULFATE 4 MG/ML SYR/VIAL IV PRN (03:30)
[2020-07-21] MEDS ORDERED: HYDROcodone-ACET 5/325MG TAB PO PRN (03:30)
[2020-07-21] MEDS ORDERED: ONDANSETRON HCL 4 MG/2 ML VIAL IV PRN (03:30)
[2020-07-21] MEDS ORDERED: DOCUSATE SOD 100 MG CAP PO PRN (03:30)
[2020-07-21] MEDS ORDERED: ACETAMINOPHEN 325 MG TAB PO PRN (03:30)
[2020-07-21] MEDS ORDERED: NITROGLYCERIN 0.4 MG SL TAB SL PRN (03:30)
[2020-07-21] MEDS ORDERED: VANCOMYCIN PER PHARMACY 0 MG IV SCH (03:45)
[2020-07-21] MEDS ORDERED: VANCOMYCIN 1GM/250ML 250 ML IV ONE (03:45)
[2020-07-21] MEDS ORDERED: DEXTROSE (50%) 50ML SYRG IV PRN (04:00)
[2020-07-21] MEDS: SODIUM CHLOR 0.9% PF (SALINE LOCK) 10ML VIAL/SYR IV SCH ×3 (06:02→22:24)
[2020-07-21] MEDS: InsuLIN REG 1unit/0.01ml Soln (100units/ml) SC SCH ×4 (07:00→22:27)
[2020-07-21] MEDS: PANTOPRAZOLE 40 MG/10 ML VIAL INJ IV SCH (07:00)
[2020-07-21] MEDS: ACCU-CHEK COMFORT CURVE STRIP VI SCH ×4 (07:00→22:24)
[2020-07-21 07:57] LABS: Albumin 2.3 g/dL (3.4-5.0); BUN/Creatinine Ratio 57.5; Calcium 9.1 mg/dL (8.5-10.1); Potassium 3.7 mmol/L (3.5-5.1)
[2020-07-21 08:09] LABS: Basophils # (auto) 0 10 ^3/uL (0-0.2); Basophils % (auto) 0.1 % (0.0-2.0); Eosinophils # (auto) 0.2 10 ^3/uL (0-0.8); Eosinophils % (auto) 3.6 % (0.0-7.0); Hematocrit 40.3 % (36.0-46.0); Hemoglobin 12.2 g/dL (12.2-16.2); Lymphocytes # (auto) 1.1 10 ^3/uL (0.4-5.4); Lymphocytes % (auto) 23.4 % (10.0-50.0); Mean Corpuscular Hemoglobin 28.1 pg (28.0-32.0); Mean Corpuscular Hgb Conc. 30.4 g/dL (32.0-36.0); Mean Corpuscular Volume 92.6 fL (80.0-100.0); Monocytes # (auto) 0.6 10 ^3/uL (0-1.3); Neutrophils # (auto) 2.9 10 ^3/uL (1.6-8.6); Neutrophils % (auto) 60.9 % (37.0-80.0); Platelet Count (auto) 79 10^3/uL (140-450); Red Blood Cells 4.35 10^6/uL (4.0-5.20); Red Cell Distribution Width 15.8 % (11.8-14.3); White Blood Cell 4.7 10^3/uL (4.4-10.8)
[2020-07-21 08:13] LABS: Bilirubin, Total 0.5 mg/dL (0.2-1.0); Total Protein 6.1 g/dL (6.4-8.2)
[2020-07-21 08:30] VITALS: BP 101/56
--- NOTE | 2020-07-21 09:03 | NUR ---
SPOKE WITH RT. INFORMED THEM OF ABG AND CO2 LEVEL TRENDING DOWN BUT PATIENT IS SATURATING AT 82% ON 2L NC. PER RT THAT IS OKAY FOR NOW. WILL SPEAK WITH DOCTOR.
--- NOTE | 2020-07-21 09:04 | NUR ---
VIVIAN BUTCHER FOR CRITICAL CO2 LEVEL. AWAITING CALL BACK
--- NOTE | 2020-07-21 09:15 | NUR ---
RECEIVED CALL FROM DR. GRAY PER DR. GRAY TRANSFER ORDER HAVE BEEN GIVEN FOR DR. DANG. PAGED DR. DANG FOR CRITICAL CO2 LEVELS AWAITING CALL BACK.
[2020-07-21] MEDS: FUROSEMIDE 40 MG/4 ML VIAL IV SCH (09:40)
[2020-07-21] MEDS: methylPREDNISolone SOD SUCC 40 MG/ML VL IV SCH ×2 (09:42→22:24)
[2020-07-21] MEDS: ASCORBIC ACID 500 MG TAB PO SCH ×2 (09:43→22:24)
[2020-07-21] MEDS: ZINC SULFATE 220mg CAP or TAB PO SCH (09:43)
[2020-07-21] MEDS: MULTIPLE VITAMIN TAB PO SCH (09:44)
--- NOTE | 2020-07-21 09:53 | NUR ---
MD [facility] CALLED BACK AND ORDERED STAT PULMONARY CONSULT FOR DR. BLANCHARD. WILL FOLLOW THROUGH WITH ORDERS.
[2020-07-21] MEDS ORDERED: HEPARIN SODIUM (PORCINE) 5000 UNITS/ML 1ML VIAL SC SCH (10:00)
[2020-07-21] MEDS ORDERED: CARVEDILOL 12.5 MG PO SCH (10:00)
[2020-07-21] MEDS ORDERED: PATIENTS OWN MEDICATION (Warfarin Sodium (Coumadin) 1 TAB) PO SCH (10:00)
[2020-07-21] MEDS ORDERED: ENOXAPARIN SOD 40 MG/0.4 ML SYRINGE SC SCH (10:00)
--- NOTE | 2020-07-21 10:12 | NUR ---
MD BLANCHARD AT BEDSIDE UPDATED MD ON PATIENT'S STATUS INCLUDING YESTERDAYS ABG LEVELS. PATIENT SATURATING AT 82% ON 1L NC AND SHORT OF BREATH. MD IS AWARE AND ORDERED STAT ABG, PLACE PATIENT ON 2L NC AND MD WILL DO AN ULTRASOUND. WILL FOLLOW THROUGH WITH ORDERS.
[2020-07-21 12:33] LABS: INR 1.21 (0.9-1.15)
[2020-07-21 12:35] VITALS: BP 104/54
--- NOTE | 2020-07-21 12:45 | NUR ---
AIR MATTRESS: Air mattress ordered at [facility] 07/21/20 @ 1844, Reference# [id number]. Call [facility] at [phone] if needed to follow up. Addendum: 07/21/20 at 1246 by Chaparrita Cai RN Amended: Links added.
--- NOTE | 2020-07-21 13:32 | NUR ---
PAGED DR. DANG REGARDING HEPARIN AND WARFARIN ORER BY MEÑO LEO. AWAITING CALL BACK
--- NOTE | 2020-07-21 15:30 | NUR ---
SPOKE WITH DR. ALTON BUTCHER ORDERED COUMADIN PER PHARMACY AND STOP HEPARIN. WILL FOLLOW THROUGH WITH ORDERS.
--- NOTE | 2020-07-21 15:50 | NUR ---
WOUND CARE NOTE: Wound care in to see patient per wound care request regarding skin integrity issue that are noted present on admission. Bedside nurse took photograph of patient's wounds upon admission for reference. Patient is 75 years old female with admitting diagnosis of Acute COPD Exacerbation. Assisted nurses to transfer patient to air [facility] in Rm. 276A. Patient is awake, alert and able to verbalize needs. She's in no stated pain at this time however mild pain noted upon turning and repositioning using Nieves Huynh Faces Pain Scale. She's max assist in turning and repositioning and her Nazario score is 11. Skin/wound assessment done with the assistance of patient's nurse,ANGIE Frias. Patient's medial sacrum noted with 0.5x 2cm open full thickness wound with no measurable depth. Wound bed is red with yellow slough. Rhoda wound is bright and dark red non-blanchable, minimal serous drainage noted, no odor noted. Patient's sacral wound consistent with Stage 3 pressure injury. Patient has Hogan catheter and incontinent of stool. Patient pass small amount of formed stool. Rhoda care given, linen changed. Applied Thera honey gel to medial sacral wound and covered wound with Opti foam gentle dressing. Applied Z Guard cream to lower buttocks as preventative. Patient's Rt heel noted with 2x2cm intact DTI. Skin is intact, dark purple, soft to touch. Applied Nikhil foam boots to patient's BLE. Repositioned patient for comfort facing her Rt side, redistributed pressure points with pillows. Patient tolerated well, ANGIE Frias at bedside. RECOMMENDATION: Nursing to continue with Daily/PRN dressing change to medial sacral wound, BID/PRN cleaning and application of Z Guard cream to buttocks per MD order,Dietary consult, frequent turning and repositioning schedule as condition permits, redistribute pressure points with pillows, frequent rhoda care/check, keep clean and dry, foam boots to BLE, continue monitoring by wound care while patient is hospitalized. Addendum: 11/07/20 at 1643 by Chaparrita Cai RN Amended: Links added.
--- NOTE | 2020-07-21 15:54 | NUR ---
PATIENT PLACED ON AIR MATTRESS. STEEL SAMPLER AT BEDSIDE.
[2020-07-21 16:30] VITALS: BP 112/69
[2020-07-21] MEDS ORDERED: WARFARIN SODIUM 2 MG TAB PO ONE (17:00)
--- NOTE | 2020-07-21 18:44 | NUR ---
CLOSING SHIFT NOTE PATIENT HAS NO S/S OF DISTRESS/SOB OR PAIN AT THIS TIME. WILL ENDORSE CARE TO STAGE PRODUCER ANGIE ROTH.
--- NOTE | 2020-07-21 19:45 | NUR ---
open note assumed care of pt upon entering room pt awake and alert, on 2L nc no distress noted or expressed. pt denied any pain. pt oriented to this nurse and updated on plan of care. pt has nielsen in place, secured, below the waist and draining. pt has bilat luis enrique boots in place. bed locked, low and 2x rails up. call light in reach, this nurse to round q1hr and prn. pt encouraged to call as needed.
[2020-07-21 22:00] VITALS: BP 109/40
[2020-07-21] MEDS: VANCOMYCIN 1GM/250ML 250 ML IV SCH (22:25)
[2020-07-22 05:00] VITALS: BP 130/60
[2020-07-22 06:08] LABS: Basophils # (auto) 0 10 ^3/uL (0-0.2); Basophils % (auto) 0.2 % (0.0-2.0); Eosinophils # (auto) 0 10 ^3/uL (0-0.8); Hematocrit 40.1 % (36.0-46.0); Hemoglobin 12.7 g/dL (12.2-16.2); Lymphocytes # (auto) 0.4 10 ^3/uL (0.4-5.4); Lymphocytes % (auto) 9.7 % (10.0-50.0); Mean Corpuscular Hemoglobin 28.8 pg (28.0-32.0); Mean Corpuscular Hgb Conc. 31.6 g/dL (32.0-36.0); Mean Corpuscular Volume 91.1 fL (80.0-100.0); Monocytes # (auto) 0.1 10 ^3/uL (0-1.3); Monocytes % (auto) 2.6 % (0.0-12.0); Neutrophils # (auto) 3.7 10 ^3/uL (1.6-8.6); Neutrophils % (auto) 87.5 % (37.0-80.0); Platelet Count (auto) 94 10^3/uL (140-450); Red Blood Cells 4.41 10^6/uL (4.0-5.20); Red Cell Distribution Width 15.6 % (11.8-14.3); White Blood Cell 4.2 10^3/uL (4.4-10.8)
[2020-07-22 06:20] LABS: INR 1.11 (0.9-1.15); Partial Thromboplastin Time 27.9 sec (23.0-31.2)
[2020-07-22 06:24] LABS: Albumin 2.4 g/dL (3.4-5.0); Calcium 9.4 mg/dL (8.5-10.1)
[2020-07-22 06:29] LABS: Bilirubin, Total 0.5 mg/dL (0.2-1.0); Total Protein 6.4 g/dL (6.4-8.2)
[2020-07-22] MEDS: SODIUM CHLOR 0.9% PF (SALINE LOCK) 10ML VIAL/SYR IV SCH ×3 (06:30→20:51)
[2020-07-22] MEDS: ACCU-CHEK COMFORT CURVE STRIP VI SCH ×4 (06:31→21:39)
[2020-07-22] MEDS: InsuLIN REG 1unit/0.01ml Soln (100units/ml) SC SCH ×4 (06:31→21:40)
[2020-07-22] MEDS: PANTOPRAZOLE 40 MG/10 ML VIAL INJ IV SCH (06:31)
--- NOTE | 2020-07-22 07:05 | NUR ---
OPENING SHIFT NOTE ASSUMED CARE OF PATIENT FROM CASE SUPERVISOR RN GONZALEZ. PATIENT IS AWAKE, ALERT, AND ORIENTED X1 (PERSON). REORIENTED PATIENT TO TIME, PLACE, AND SITUATION. PATIENT HAS NO S/S OF DISTRESS/SOB OR PAIN. INSTRUCTED PATIENT ON POC, PATIENT VERBALIZED UNDERSTANDING. BED IS IN LOWEST POSITION WITH SIDE RAILS RAISED X2, BED WHEELS LOCKED, ASPIRATION PRECAUTIONS AND FALL PRECAUTIONS IN PLACE, BUITRAGO IS HANGING BELOW BLADDER AND IS DRAINING YELLOW URINE, AND CALL LIGHT IS WITHIN REACH. WILL CONTINUE TO MONITOR.
[2020-07-22 09:00] VITALS: BP 121/55
[2020-07-22] MEDS: ASCORBIC ACID 500 MG TAB PO SCH ×2 (09:13→20:51)
[2020-07-22] MEDS: MULTIPLE VITAMIN TAB PO SCH (09:13)
[2020-07-22] MEDS: ZINC SULFATE 220mg CAP or TAB PO SCH (09:13)
[2020-07-22] MEDS: FUROSEMIDE 40 MG/4 ML VIAL IV SCH (09:14)
[2020-07-22] MEDS: methylPREDNISolone SOD SUCC 40 MG/ML VL IV SCH ×2 (09:14→20:51)
--- NOTE | 2020-07-22 13:24 | NUR ---
INFORMED MD DANG PATIENT WAS EXPOSED TO COVID POSITIVE ROOM MATE. PER MD HE WANTS PATIENT TO BE TESTED AND MEÑO ESPINOSA WILL SEE THE PATIENT TODAY. INFORMED HOUSE SUPERIVSOR AND PATIENT WILL BE MOVED TO COVID UNIT WITH ANGIE LANGE. CALL LAB FOR ADELA SWAB. WILL FOLLOW THROUGH WITH ORDERS.
--- NOTE | 2020-07-22 13:45 | NUR ---
REPORT GIVEN TO ANISA ADAMS. WILL TRANSFER PATIENT TO ROOM 235.
--- NOTE | 2020-07-22 13:46 | NUR ---
report report received from Altagracia ADAMS.
[2020-07-22 13:50] VITALS: BP 154/64
--- NOTE | 2020-07-22 13:50 | NUR ---
patient on unit patient on unit. No s/s of distress noted, patient placed on bedside oxygen and oriented to unit, call light and primary RN. Will continue to monitor.
--- NOTE | 2020-07-22 14:30 | NUR ---
Nutrition Assessment/consult Notes please see attached link for complete assessment Est Energy needs ABW 99 [id number] kcals (17-20 kcal/kgABW), Est Protein needs: 99-108gms/day (1.0-1.1 gm/kgABW) Will continue to monitor and reassess prn. Addendum: 07/22/20 at [address] Amended: Links added.
--- NOTE | 2020-07-22 16:00 | NUR ---
NIELSEN Catheter noted to be leaking. Assessed area and nielsen is not in correct place. Will notify .
--- NOTE | 2020-07-22 16:10 | NUR ---
provider rounding COUNSELING DIRECTOR Rosa lock. Updated her on patient status and nielsen. Per COUNSELING DIRECTOR "she was on hospice care prior, do not re-insert the Nielsen I am not sure how aggressive care will be for her and the nielsen is not needed right now." Will follow through with orders.
[2020-07-22] MEDS: VANCOMYCIN 1GM/250ML 250 ML IV SCH (16:27)
[2020-07-22 17:00] VITALS: BP 150/66
[2020-07-22] MEDS ORDERED: WARFARIN SODIUM 2.5 MG TAB PO ONE (17:00)
--- NOTE | 2020-07-22 19:23 | NUR ---
end of shift note Endorsed care to NOC RN Blanche. No s/s of distress noted.
--- NOTE | 2020-07-22 20:00 | NUR ---
Opening Shift Note Assumed care of patient, awake and alert x3, patient easily reoriented to time, will continue to reorient patient as needed and throughout shift. Patient denies pain or shortness of breath at this time. No sign/symptoms of distress noted or verbalized at this time. Instructed on plan of care and encouraged patient to call for assistance as needed, patient verbalized understanding. Nikhil foam boots in place to bilateral feet. Bed is locked in lowest position, side rails x 2 are up, call light is within reach, and bed alarm is on.
[2020-07-22] MEDS: PRAVASTATIN SODIUM 20 MG TAB PO SCH (20:51)
[2020-07-22 23:16] VITALS: BP 141/111
--- NOTE | 2020-07-23 03:23 | NUR ---
Patient Transferred to [facility] Patient transferred from [facility] unit to the [facility]. Report given to Ros. Patient transferred via bed with portable oxygen at 2L/min NC. No sign/symptoms of distress noted or verbalized upon departure. Patient care endorsed to Ros.
--- NOTE | 2020-07-23 03:25 | NUR ---
Patient arrived to room 207 Patient transported by bed. Patient A&O to self, , place, and her current medical situation. Patient stated that she has 0/10 pain at this time. Patient placed on 2L NC, respirations even and non-labored with no s/s of distress. Patient repositioned/turned for comfort with pillows. Patient tolerated well. Discussed POC and answered patient questions, oriented patient to the room, call light, and bedroom, advised patient to call for assistance, patient verbalized understanding. Bed alarm in place along with safety precautions. Bed in lowest locked position with 2 side rails up, call light placed in reach of patient. Will continue to monitor Q1hr and PRN.
--- NOTE | 2020-07-23 04:42 | NUR ---
Telemetry 7 replaced with 46
[2020-07-23 05:00] VITALS: BP 125/69
[2020-07-23] MEDS: PANTOPRAZOLE 40 MG/10 ML VIAL INJ IV SCH (05:36)
[2020-07-23] MEDS: ACCU-CHEK COMFORT CURVE STRIP VI SCH ×4 (05:37→22:09)
[2020-07-23] MEDS: SODIUM CHLOR 0.9% PF (SALINE LOCK) 10ML VIAL/SYR IV SCH ×3 (05:37→22:08)
[2020-07-23] MEDS: InsuLIN REG 1unit/0.01ml Soln (100units/ml) SC SCH ×4 (06:19→22:22)
--- NOTE | 2020-07-23 06:26 | NUR ---
Patient sleeping Respirations even and non-labored with no s/s of distress at this time.
--- NOTE | 2020-07-23 07:45 | NUR ---
Opening Shift Note Assumed care of patient, awake and alert, pleasantly confused. No S/S of distress/SOB or pain. Instructed on POC and to call for assist PRN, will continue to monitor for changes Q1hr and PRN.
[2020-07-23 09:00] VITALS: BP 112/81
[2020-07-23 09:29] LABS: INR 1.17 (0.9-1.15)
[2020-07-23 09:32] LABS: Albumin 2.5 g/dL (3.4-5.0); Calcium 9.2 mg/dL (8.5-10.1); Magnesium 1.9 mg/dL (1.6-2.6)
[2020-07-23 09:34] LABS: BUN/Creatinine Ratio 39.1
[2020-07-23 09:37] LABS: Bilirubin, Total 0.4 mg/dL (0.2-1.0); Phosphorus 2.7 mg/dL (2.5-4.90); Total Protein 6.5 g/dL (6.4-8.2)
[2020-07-23] MEDS: MULTIPLE VITAMIN TAB PO SCH (10:00)
[2020-07-23] MEDS: methylPREDNISolone SOD SUCC 40 MG/ML VL IV SCH ×2 (10:31→22:08)
[2020-07-23] MEDS: ASCORBIC ACID 500 MG TAB PO SCH ×2 (10:31→22:09)
[2020-07-23] MEDS: ZINC SULFATE 220mg CAP or TAB PO SCH (10:31)
[2020-07-23] MEDS: FUROSEMIDE 40 MG/4 ML VIAL IV SCH (10:31)
[2020-07-23] MEDS: VANCOMYCIN 1GM/250ML 250 ML IV SCH ×2 (10:35→22:08)
[2020-07-23] MEDS ORDERED: cefTRIAXone 1GM/50ML D5W 50 ML IV ONE (12:15)
[2020-07-23 13:00] VITALS: BP 148/98
--- NOTE | 2020-07-23 16:21 | NUR ---
Assessment Patient is a 75-year-old female with history of Dementia. Assessment was completed with patient daughter Ya . Per Ya prior to admission patient reside at [facility] under hospice with Thida. Advised Ya there is a social service consult for patient to return to SNF under hospice care. Per Ya patient will return home to her prior living arrangements post discharge. Per Ya patient has a nebulizer, oxygen, wheelchair and walker for home use. Informed Ya she has the right to participate in all discharge planning. Ya verbalized understanding and agreed to discharge plan. Faxed clinical information to [facility] [place]. Pending on acceptance. Addendum: 07/23/20 at 1622 by FELIX HOLLIDAY Amended: Links added.
[2020-07-23 17:00] VITALS: BP 175/87
[2020-07-23] MEDS ORDERED: WARFARIN SODIUM 2.5 MG TAB PO ONE (17:00)
--- NOTE | 2020-07-23 17:18 | NUR ---
PER FELIX Mitchell PATIENTS DAUGHTER WILL DECIDE ON HOSPICE AND WILL CALL BACK SOON.
--- NOTE | 2020-07-23 18:47 | NUR ---
ELEVATED BP PAGED DRAPERY HAND JOAQUIN COVERING FOR DR DANG @[phone] DANG [phone].
--- NOTE | 2020-07-23 18:58 | NUR ---
MD RETURNED CALL NEW ORDER TO BE CARRIED OUT.
[2020-07-23] MEDS ORDERED: hydrALAZINE HCL 20 MG/ML VL IV PRN (19:00)
--- NOTE | 2020-07-23 19:15 | NUR ---
Opening shift note Assumed care of patient from day shift RN, Rex. Patient A&O, respirations even and non-labored without s/s of distress at this time. Discussed POC and answered questions that the patient had regarding her daughter and the facility that she would be going to for hospice. Patient had no c/o pain at this time. Bed in lowest locked position with 2 side rails up, call light within reach. Will continue to monitor Q1hr and PRN.
--- NOTE | 2020-07-23 21:15 | NUR ---
Patient incontinent Changed linens/gown. Applied barrier cream to irritated folds of skin under breasts, legs, and sacrum. Repositioned for comfort. Patient tolerated well.
[2020-07-23 22:00] VITALS: BP 135/78
[2020-07-23] MEDS: PRAVASTATIN SODIUM 20 MG TAB PO SCH (22:09)
--- NOTE | 2020-07-23 23:33 | NUR ---
IV insertion IV access obtained, via clean sterile technique by inserting 22 gauge catheter at the left wrist after 1 attempt. IV secured properly. No trauma to site. Patient tolerated well. NOTE: Patient dislodged IV to the right hand. Catheter intact, pressure dressing applied.
[2020-07-24 05:00] VITALS: BP 132/70
[2020-07-24 05:37] LABS: Basophils # (auto) 0 10 ^3/uL (0-0.2); Eosinophils # (auto) 0 10 ^3/uL (0-0.8); Hematocrit 44.5 % (36.0-46.0); Hemoglobin 13.8 g/dL (12.2-16.2); Lymphocytes # (auto) 0.4 10 ^3/uL (0.4-5.4); Lymphocytes % (auto) 5.8 % (10.0-50.0); Mean Corpuscular Hemoglobin 28.4 pg (28.0-32.0); Mean Corpuscular Volume 91.6 fL (80.0-100.0); Monocytes # (auto) 0.2 10 ^3/uL (0-1.3); Monocytes % (auto) 2.9 % (0.0-12.0); Neutrophils # (auto) 5.7 10 ^3/uL (1.6-8.6); Neutrophils % (auto) 91.3 % (37.0-80.0); Nucleated Red Blood Cells % 0.1 %; Platelet Count (auto) 132 10^3/uL (140-450); Red Blood Cells 4.86 10^6/uL (4.0-5.20); Red Cell Distribution Width 16.4 % (11.8-14.3); White Blood Cell 6.2 10^3/uL (4.4-10.8)
--- NOTE | 2020-07-24 05:54 | NUR ---
Patient Linens/gown/dressing change Dressing to sacrum removed, washed area, applied barrier cream, replaced optifoam. Positioned/turned for comfort, patient tolerated well.
[2020-07-24 05:55] LABS: BUN/Creatinine Ratio 70.6; Calcium 9.6 mg/dL (8.5-10.1)
[2020-07-24] MEDS: SODIUM CHLOR 0.9% PF (SALINE LOCK) 10ML VIAL/SYR IV SCH ×2 (05:58→17:54)
[2020-07-24] MEDS: ACCU-CHEK COMFORT CURVE STRIP VI SCH ×3 (05:58→17:54)
[2020-07-24] MEDS: PANTOPRAZOLE 40 MG/10 ML VIAL INJ IV SCH (05:59)
[2020-07-24 06:01] LABS: INR 1.36 (0.9-1.15)
--- NOTE | 2020-07-24 06:29 | NUR ---
Critical Lab CO2: [address] José Luis persaud
[2020-07-24] MEDS: InsuLIN REG 1unit/0.01ml Soln (100units/ml) SC SCH ×3 (06:31→17:56)
--- NOTE | 2020-07-24 06:33 | NUR ---
Contacted Dr. Ordonez Office Left message regarding critical lab for CO2 of 48.
--- NOTE | 2020-07-24 06:55 | NUR ---
Patient resting Respirations even and non-labored with no s/s of distress at this time.
--- NOTE | 2020-07-24 07:42 | NUR ---
Opening Shift Note Assumed care of patient, awake and alert, pleasantly confused. No S/S of distress/SOB or pain. Instructed on POC and to call for assist PRN, will continue to monitor for changes Q1hr and PRN. MEÑO Castillo notified patients daughter Ya requested an update from her or Dr Quinones prior to patient returning to [facility]; Ya undecided about hospice at this time.
[2020-07-24 09:00] VITALS: BP 160/69
[2020-07-24] MEDS ORDERED: cefTRIAXone 1GM/50ML D5W 50 ML IV SCH (09:00)
--- NOTE | 2020-07-24 09:22 | NUR ---
D/C planning Received a follow up called from Loretta with [facility] advising me they will not be resuming service for patient. Will follow up with patient daughter Ya. Will informed bedside nurse.
[2020-07-24] MEDS: ASCORBIC ACID 500 MG TAB PO SCH (09:24)
[2020-07-24] MEDS: ZINC SULFATE 220mg CAP or TAB PO SCH (09:24)
[2020-07-24] MEDS: FUROSEMIDE 40 MG/4 ML VIAL IV SCH (09:25)
[2020-07-24] MEDS: MULTIPLE VITAMIN TAB PO SCH (09:25)
[2020-07-24] MEDS: methylPREDNISolone SOD SUCC 40 MG/ML VL IV SCH (09:25)
[2020-07-24] MEDS: VANCOMYCIN 1GM/250ML 250 ML IV SCH (09:27)
[2020-07-24 13:00] VITALS: BP 157/74
--- NOTE | 2020-07-24 15:37 | NUR ---
D/C planning Patient Ya no longer wants patient on hospice. Patient will be returning to [facility]. MD order faxed to [facility]. Per Dee Dee with [facility] patient has been accepted but will need an authorization from secondary insurance due to patient not having any medicare days for SNF. Faxed clinical information to [facility]. Obtain authorization from [facility] for SNF [id number] and transportation [id number]. Authorization given to [facility]. Patient has been accepted to room 26b accepting , Dr. Quinones. Faxed transportation form request to [facility] transportation for 17:30 via gurney with oxygen. Informed ANGIE Goodman.
[2020-07-24 17:00] VITALS: BP 156/69
[2020-07-24] MEDS ORDERED: WARFARIN SODIUM 2 MG TAB PO ONE (17:00)
--- NOTE | 2020-07-24 18:00 | NUR ---
Discharge instructions given as ordered. Encourage to follow up with PMD as instructed. All questions and concerns addressed. Patient verbalized understanding. Telemetry unit returned to ICU. Patient taken to vehicle via [facility] by transportation back to [facility] with all personal belongings, accompanied by staff and family member. No distress noted at time of departure.
== END 2020-07-24 18:00 | DRG 291 ==
LOC: EDBD 22:43 → ER 22:46 → TELE 22:47 → TELE-WESTW 07-21 07:42 → TELE-EAST 07-22 13:50 → TELE-CENTR 07-23 03:25
PROVIDERS: ADMIT Nurse Practitioner Family; ATTEND Internal Medicine
DX: I13.0 Hypertensive heart and chronic kidney disease with heart failure and stage 1 through stage 4 chronic kidney disease, or unspecified chronic kidney disease (principal); I50.33 Acute on chronic diastolic (congestive) heart failure; J44.1 Chronic obstructive pulmonary disease with (acute) exacerbation; N39.0 Urinary tract infection, site not specified; Z68.42 Body mass index [BMI] 45.0-49.9, adult; J96.12 Chronic respiratory failure with hypercapnia; J96.11 Chronic respiratory failure with hypoxia; E11.22 Type 2 diabetes mellitus with diabetic chronic kidney disease; N18.9 Chronic kidney disease, unspecified; G47.419 Narcolepsy without cataplexy; E66.01 Morbid (severe) obesity due to excess calories; E78.5 Hyperlipidemia, unspecified; F03.90 Unspecified dementia, unspecified severity, without behavioral disturbance, psychotic disturbance, mood disturbance, and anxiety; F32.9 Major depressive disorder, single episode, unspecified; Z20.828 Contact with and (suspected) exposure to other viral communicable diseases; I48.91 Unspecified atrial fibrillation; M10.9 Gout, unspecified; F41.9 Anxiety disorder, unspecified; I70.0 Atherosclerosis of aorta; Z80.0 Family history of malignant neoplasm of digestive organs; Z80.1 Family history of malignant neoplasm of trachea, bronchus and lung; Z99.81 Dependence on supplemental oxygen; Z82.49 Family history of ischemic heart disease and other diseases of the circulatory system; Z83.3 Family history of diabetes mellitus; Z85.038 Personal history of other malignant neoplasm of large intestine; Z85.118 Personal history of other malignant neoplasm of bronchus and lung; Z86.73 Personal history of transient ischemic attack (TIA), and cerebral infarction without residual deficits; Z90.710 Acquired absence of both cervix and uterus; Z88.0 Allergy status to penicillin; Z79.899 Other long term (current) drug therapy
CPT/HCPCS: 36415; 36600; 51702; 71045; 80048; 80053; 80061; 80202; 81001; 82805; 82962; 83735; 83880; 84100; 84484; 85025; 85610; 85730; 87077; 87081; 87086; 87088; 87186; 87205; 87426; 93005; 96365; 96367; 96372; 96375; 97110; 97163; 97530; C9113; G0378; J0696; J1815